=== PATIENT | male | born 1960 | race Caucasian/White ===

== ENCOUNTER → 2021-02-18 12:42 | Outpatient (CLI) | payer MEDICAID, SELFPAY ==
--- NOTE | 2021-02-18 12:46 | RAD_ITS ---
HISTORY: SCIATICA EXAMINATION/TECHNIQUE: XR Spine Lumbar Comp W/ Bending Min 6 Views: 6 view lumbar spine with flexion and extension views COMPARISON: None FINDINGS: VERTEBRAE: 5 [id number] lumbar type vertebra. No fracture or acute compression deformity. Levocurvature of the lumbar spine. Straightening of the normal cervical lordosis with grade 1 degenerative retrolisthesis L4 and L5. Mild scattered vertebral endplate osteophyte formation. Diffuse facet arthropathy, most prominent at L2-L3, L3-L4, and L4-L5 with mild osseous neuroforaminal stenosis.. DISCS: Diffuse disc height loss, most prominent L1-L2. INCLUDED ABDOMEN: Included bowel gas pattern is non-obstructive. RAD/L/S Spine w Bend Min 6 Vw IMPRESSION: Mild to moderate diffuse lumbar spondylosis with levocurvature. Degenerative listhesis at L4-5 with mild spinal canal and neuroforaminal stenosis. MRI could further evaluate stenosis as clinically indicated at 0314 Reported and signed by: Luis Eduardo Mittal MD Electronically Signed: Luis Eduardo Mittal MD at 3:12 EDT Tel , Service support ,
--- NOTE | 2021-02-18 12:46 | RAD_ITS ---
STUDY: X-RAY EXAMINATION: SCOLIOSIS SERIES REASON FOR EXAM: Male, 60 years old. SCIATICA TECHNIQUE: Frontal view(s) of the thoracolumbar spine were obtained in the upright standing position. COMPARISON: None. FINDINGS: There is a 18 degree dextroscoliosis of the thoracic spine with the apex of the convexity at the T7 level. There is a 17 degree levoscoliosis scoliosis of the lumbar spine with the apex of the convexity at the L3 level. RAD/Scoliosis 1 view IMPRESSION: 18 degree dextroscoliosis of the thoracic spine at 17 degrees levoscoliosis of the lumbar spine. Electronically Signed: Barrett Hoffman MD at 15:13 EDT , Service support ,
== END ==
PROVIDERS: PCP Family Medicine; Referring Provider Family Medicine; Visit Provider Family Medicine
DX: M41.9 Scoliosis, unspecified (principal); M54.31 Sciatica, right side
CPT/HCPCS: 72081; 72114

== ENCOUNTER 2021-04-17 08:30 | Outpatient (RCR) | payer OTHER, SELFPAY ==
--- NOTE | 2021-03-06 10:43 | HP.PTEVAL_ITS ---
Patient's Visit Information LESLEY MCCLOUD is a 60 year old M referred to Physical Therapy by Dr. Bernardino Mendieta MD with a diagnosis of Significant lumbar and thoracic scoliosis, DDD. Date of Evaluation: 03/06/21 Physical Therapist: Janna Trujillo DPT - Visit Plan Frequency: 3x /Week Duration: 4 Weeks Plan: Acute back pain- neutral spine- modalities- with progression to increased ROM as tolerated and strengthening to return to ADL's and work related tasks - Subjective Patient reports that he has back issues with severe scoliosis and degeneration. He has had chronic back pain but this bout has been about 3 weeks. 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 Was getting around okay, but a week ago Thursday he rolled over and felt the pain radiate all the way to the achilles on the r ight side. Currently he has pain that radiates to the right calf muscle. Current pain level: 3/10 Worst: 9/10 Crawling in/out of bed, rolling in bed and putting his socks on are the hardest tasks. Agg: weight bearing and twisting. Eases: if sitting getting up and standing and then vis versa- sometimes laying flat on his back. The last two night he has slept on his back and belly. Normally he sleeps on his back. Describes the pain as sharp knife like and hot- but then sometimes he has had almost a cold pain on the lateral thigh. N/T in the right leg comes and goes- has had issues for 10-15 years. Went to see who gave him a medrol dose pack and Tylenol and sent him to PT. He had x-rays but no MRI at this time. The knee does buckle under him- no falls or AD at this time. No change or loss of bowel/bladder. Has not had PT prior. 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 PMHx/Meds: see list - Objective Posture: guarded- FH, RS- can correct but does not maintain- in sitting leans to the left side. Gait: antalgic- decreased stance on the left LE- slightly forward flexed- decreased arm swing and trunk rotation- very hesitant to change directions. HR/TR: able but reports pain HR>TR. SLS: weight shift but unable to SLS on right due to pain- is able to SLS on the left for 10 seconds- reports instability feeling on the right. ROM: Lumbar: Flexion: hands to mid thigh- reports pain with flexion and return to standing, Extn: neutral, SB: equal with pain when SB left. Rotation Left: decreased by 50% with pain- Right: WFL. Sensation: diminished along calf on right. Reflex: patellar-0. Flex: HS: severe, Gastroc: severe. Strength: core: poor, Hip: 4/5 throughout, Knee: 5/5, Ankle: 4+/5 on right. Special Test: Dural signs right: positive, slump right: positive, flexion and prone testing increased symptoms- supine with knees elevated on 2 bolsters gave him slight relief - Balance/Special Test Scores Oswestry Low Back Score: 26 - Goals Goal 1:: Patient will be I with HEP and progression Goal 2:: Patient will report no radiating s/s down his right leg Goal Time Frame: 4-6 Weeks Goal 3:: Patient will return ability to return to work without pain Goal Time Frame: 4-6 Weeks Goal 4:: Patient will maintain proper posture t/o tx session to demo increased core s/s Goal Time Frame: 4-6 Weeks - Rehabilitation Potential Physical Therapy Diagnosis: Patient presents with hypomobility- he has decreased pain free ROM, LE and core strength/stabilization, proprioception, muscular endurance and positive dural signs leading to poor posture, radicular s/s, and decreased ability to perform ADL's/work related tasks. Rehabilitation Potential: Fair - Anticipated Interventions Patient/Client Instruction: Educate patient on: Benefits of Fitness Program Therapeutic Exercise to Include: Strength training, Endurance training, Body mechanics, Postural training, Gait and locomotor training, Dynamic Lumbar Stabilization For the Purpose of:: To improve muscle performance and motor function TENS: Yes Cryotherapy (ice pack, ice massage): Yes Thermo therapy (hot pack): Yes Ultrasound (thermal/non thermal): Yes For the Purpose of:: To decrease pain Thank you for the opportunity to evaluate your patient. For Medicare and Medicare HMO plans, please review the plan of care and approve it. It will need to be FAXED BACK to us at [phone] for Medicare purposes. For Medicare only, by signing this I certify the plan of care. Please let me know if there are questions or concerns regarding this plan of care. Physician Signature: Date:
--- NOTE | 2021-04-17 10:31 | HP.PTDCSUM_ITS ---
It has been my pleasure to treat LESLEY MCCLOUD referred by Dr. Bernardino Mendieta MD, with the diagnosis of Significant lumbar and thoracic scoliosis, DDD for a total of 12 visit(s). Discharge Date: Please see the following information for a summary of their discharge status. Subjective: PATIENT REPORTS HE DID OK AFTER LAST PT SESSION BUT PAIN STARTED TO INCREASE YESTERDAY FOR NO APPARENT REASON AND IT IS BAD THIS MORNING. GETTING OUT OF THE CAR TODAY SHOT PAIN DOWN RIGHT LEG TO THE ANKLE. PATIENT REPORTS HIS NORMAL DAILY ACTIVITY ARE SEVERLY RESTRICTED BY THE PAIN. AT THE MOMENT PATIENT FEELS LIKE HE HAS BACK SLID - AGAIN FOR NO APPARENT REASON. ABOUT A WEEK AGO PATIENT REPORTED 60% IMPROVEMENT BUT NOW 30%. PATIENT REPORTS UP TO 8/10 PAIN THAT STOPS ME IN MY TRACKS WITH CERTAIN MVMTS. RIGHT THIGH Pain Intensity (Out of 10): 5 % Improvement: 30 Objective/Function: PATIENT WAS SEEN TODAY FOR RE-ASSESSMENT OF PROGRESS TOWARD THE SET PT GOALS AND THE NEED FOR FURTHER PHYSICAL THERAPY VS READINESS FOR DISCHARGE. PATIENT WAS IMPROVING SLOWLY INITIALLY SUBJECTIVELY WITH PHYSICAL THERAPY BUT ONLY TO A POINT AND HAS RECENTLY STARTED TO REPORT WORSEN AGAIN FOR NO APPARENT REASON. HE CAN ONLY TOLERATED LIGHT EX AND HIS NORMAL DAILY ACTIVITIES ARE GREATLY LIMITED COMPARED TO BEFORE ONSET OF THIS EPISODE. PATIENT DOES GET TEMPORARY RELIEF FROM SX'S WITH MODALITIES AND HOME TENS UNIT MAY BE BENEFICIAL - THIS WAS DISCUSSED AND PATIENT CONSIDERING. THERE ARE SMALL IMPROVEMENTS IN HIS LUMBAR ROM WITH TESTING TODAY BUT HE NOW HAS SOME DECREASED LIGHT TOUCH SENSATION OF THE RIGHT LATERAL THIGH AND POSTERIOR/MEDIAL LEG. RIGHT HIP FLEXION IS WEAKER THAN LEFT NOW. UPON EXAM TODAY: LUMBAR MVMT LOSS: FLEX - MIN. EXT - MOD TO BRISSA. RIGHT SG - MOD. LEFT SG - MOD. PATIENT C/O INCREASED PAIN IN BACK AND RIGHT BUTTOCK WITH LUMBAR ROM TESTING ALL PLANES - E SPECIALLY LUMBAR EXTENSION. POSITIVE R LE DURAL SIGNS. POOR CORE STRENGTH. LE'S GROSSLY 5/5 WITH MMT'ING EXCEPT RIGHT HIP 4-/5 AND LEFT 4/5. PATIENT TOLERATED STIM AND EX WELL TODAY AND REPORTED FEELING MUCH BETTER UPON DEPARTURE. Goal 1:: Patient will be I with HEP and progression Goal Progress: Not Progressing Goal 2:: Patient will report no radiating s/s down his right leg Goal Progress: Not Progressing Goal 3:: Patient will return ability to return to work without pain Goal Progress: Not Progressing Goal 4:: Patient will maintain proper posture t/o tx session to demo increased core s/s Goal Progress: Not Progressing Plan: D/C DUE TO LACK OF PROGRESS. PHYSICIAN REASSESSMENT RECOMMENDED. If there are questions or concerns regarding this patient's physical therapy, please feel free to call me at [phone]. Thank you for the referral of this patient. Sincerely, Radha Mcgraw, PT, Cert MDT Balance/Gait/Functional tests - Balance/Special Test Scores Oswestry Low Back Score: 29
== END 2021-04-17 19:00 | disposition home or self-care (01) ==
LOC: PT 08:30
PROVIDERS: PCP Family Medicine; Referring Provider Family Medicine; Visit Provider Family Medicine
DX: M41.9 Scoliosis, unspecified (principal); M51.36 Other intervertebral disc degeneration, lumbar region
CPT/HCPCS: 97014; 97035; 97110; 97162; 97164; 97530; G0283

== ENCOUNTER 2021-05-13 06:24 | Outpatient (CLI) | payer OTHER, SELFPAY ==
--- NOTE | 2021-05-13 06:42 | MRI_ITS ---
STUDY: MRI LUMBAR SPINE WITHOUT CONTRAST REASON FOR EXAM: Male, 60 years old. LUMBAGO TECHNIQUE: Standardized fat and water weighted pulse sequences were obtained in the sagittal and axial planes. COMPARISON: X-ray 02/18/2021 FINDINGS: T12-L1: Normal endplates. Normal disc height, hydration and morphology. Normal bilateral facet joints. Normal central canal and bilateral lateral recesses. Normal bilateral intervertebral neural foramina. Normal lumbar lordosis. Mild levoscoliosis centered at L3. Normal conus medullaris that terminates at the T12. L1-2: Mild bilobed disc protrusion asymmetric to left produces mild spinal stenosis and moderate left neural foraminal stenosis. L2-3: Mild bilobed disc protrusion produces mild spinal stenosis and mild bilateral neural foraminal stenosis. L3-4: Moderate bilateral facet hypertrophy and ligament flavum hypertrophy. 2 mm of anterolisthesis of L3 on L4 with a moderate broad disc protrusion produces severe spinal stenosis with severe bilateral lateral recess stenosis with effacement of the L4 nerve roots bilaterally and moderate bilateral neural foraminal stenosis with abutment of the L3 nerve roots bilaterally. L4-5: Mild bilateral facet hypertrophy and moderate ligament flavum hypertrophy. 2 mm retrolisthesis of L4 on L5 with a mild broad disc protrusion produces moderate spinal stenosis with moderate bilateral lateral recess stenosis with abutment of the L5 nerve roots bilaterally and mild bilateral neural foraminal stenosis. L5-S1: Mild bilateral facet hypertrophy. 2 mm retrolisthesis of L5 on S1 with a mild broad disc protrusion produces moderate spinal stenosis with moderate bilateral lateral recess stenosis with abutment of the S1 nerve roots bilaterally and moderate bilateral neural foraminal stenosis with abutment of the L5 nerve roots bilaterally. Normal visualized sacral ala. Normal visualized paraspinous soft tissue structures. MRI/Spine Lumbar (Routine) IMPRESSION: Mild levoscoliosis with degenerative disc disease as described above. Electronically Signed: Ted Gamble MD at 7:51 EST Tel , Service support ,
== END 2021-05-13 23:59 | disposition short-term general hospital (02) ==
LOC: MRI 06:28
PROVIDERS: PCP Family Medicine; Referring Provider Family Medicine; Visit Provider Family Medicine
DX: M54.41 Lumbago with sciatica, right side (principal)
CPT/HCPCS: 72148

== ENCOUNTER 2021-07-23 12:33 | Observation (INO) | payer OTHER, SELFPAY ==
--- NOTE | 2021-07-10 08:54 | EKG12_ITS ---
Test Reason : PREOP Blood Pressure : / mmHG Vent. Rate : 061 BPM Atrial Rate : 061 BPM P-R Int : 176 ms QRS Dur : 102 ms QT Int : 410 ms P-R-T Axes : 069 017 022 degrees QTc Int : 412 ms Normal sinus rhythm Normal ECG Confirmed by MJ ZAMBRANO MD ([id number]), editor newspaper LEONEL ALTAMIRANO ([id number]) on 07/10/2021 1:34:48 PM Referred By: Lopez Mg Confirmed By:MJ ZAMBRANO MD
[2021-07-10 10:18] LABS: Absolute Lymphocyte Count 1.11 X10^3/uL (0.83-4.51); Absolute Neutrophil Count 2.5 X10^3/uL (2.0-7.7); Basophil# 0.03 X10^3/uL; Basophil% 0.7 % (0-1); Eosinophil# 0.13 X10^3/uL; Eosinophils% 3.1 % (0-5); Hemoglobin 15.3 g/dL (13.0-16.5); Lymphocyte # 1.11 X10^3/ul (0.83-4.51); Lymphocyte % 26.7 % (19-41); Mean Corpuscular Hgb 31.2 pg (27.0-32.0); Mean Corpuscular Volume 91.8 fL (80-94); Monocyte# 0.38 X10^3/uL; Monocyte% 9.2 % (0-10); NRBC Flagged by Analyzer 0 % (0-5); Neutrophil # 2.48 X10^3/uL (2.7-7.7); Neutrophil % 59.8 % (47-70); Platelet Count 280 K/mm3 (150-450); RBC Distribution Width CV 11.9 % (11.6-14.6); RBC Distribution Width SD 40.3 fl (35.1-43.9); White Blood Count 4.2 K/mm3 (4.4-11.0)
[2021-07-10 10:52] LABS: Magnesium 2.1 mg/dL (1.6-2.6)
[2021-07-10 10:59] LABS: Anion Gap 7 (5-15); BUN 19 mg/dL (7-18); BUN/Creat Ratio 19.9 RATIO (10-20); Calcium,Total 9.5 mg/dL (8.5-10.1); Chloride 105 mmol/L (98-107); Creatinine, Serum 0.96 mg/dL (0.70-1.30); EST Glomerular Filtration Rate 85 mL/min (>60); Est Glom Filt Rate - Afr Amer 102 mL/min (>60); Glucose 94 mg/dL (74-106); Potassium 4.3 mmol/L (3.5-5.1); Sodium Level 138 mmol/L (136-145)
[2021-07-10 11:26] LABS: HIV - WCH Non-Reactive (Nonreactive); Hepatitis B Surface Antibody Reactive; Hepatitis C Antibody Non-Reactive (Nonreactive)
[2021-07-11 16:27] LABS: Hepatitis A AB, Total Negative (Negative)
--- NOTE | 2021-07-22 08:44 | HP.PCM_ITS ---
History and Physical Date of Admission: 07/23/21 [facility] [id number] [phone] OFFICE VISITDate of Service: 06/10/21 MR#:[id number]:[id number]: LESLEY MCCLOUDRep #:[id number] Provider:Dr. Lopez Mg, Age/Sex: 60/M [facility] Intake Vital Signs 06/10/21 14:20 Height 5 ft 9.5 in Weight: 192 lb 8 oz BMI 28.0 Intake Visit Reasons: Lumbar pain Chief Complaint: right leg pain Allergies No Known Allergies Allergy (Verified 06/10/21 14:26) Medications antiarthritic combination no.2 900 mg tablet mg PO 06/10/21 [History Confirmed 06/10/21] ascorbate calcium (vitamin C) 500 mg tablet 500 mg PO DAILY 06/10/21 [History Confirmed 06/10/21] cholecalciferol (vitamin D3) 50 mcg (2,000 unit) capsule 50 mcg PO DAILY 06/10/21 [History Confirmed 06/10/21] ferrous sulfate 325 mg (65 mg iron) tablet 325 mg PO DAILY 06/10/21 [History Confirmed 06/10/21] PFSH Family History Father Cancer Heart disease Social History Smoking Status: Never smoker alcohol intake: current details: 2-3 drinks per week HPI Low back pain Details: Parts of this documentation were recorded by a scribe, this documentation accurately reflects the service provided and the decisions made by me, Dr. Lopez Mg DO 06/10/21 [id number]. LESLEY MCCLOUD is a 60 year old M NEW Pt here today for right leg pain since 02/2021. Pt denies any injury or surgeries. Pt states pain is posterior under gluteus ana with radicular pain down to toes. Pt states he does have occasional numbness and tingling which sometimes radiates to left thigh. Pt has completed PT helped at first but then seemed to worsen. 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 Pt states he doesn't take NSAID's on a regular basis just PRN when the pain is severe. Lesley is a most pleasant gentleman 60 years old that has chief complaint of low back pain. It also radiates down the right leg and occasionally the left leg. Ambulation seems to make it worse. The pain has become severe over time. He states that he started having some trouble even his long as 10 years ago but the last few months it has been even worse. On examination he has little pain with extension or flexion at this time. He can almost touch his toes. He has good motor strength of all the major muscle groups of both lower extremities. He has no muscle atrophy that I can see. His reflexes are physiologic bilaterally and equal. He has no long tract signs. Clonus is absent Babinski's are downgoing. MRI scan of his lumbar spine is states that he has degeneration throughout his lumbar spine however he has very significant and severe stenosis at L3-4. He has mild stenosis at 4 5 and mild stenosis at 2 3 however these should probably be ignored. We had a long discussion regarding his options. Option #1 of course would be to do nothing. He did not like that idea. Option #2 would be epidural steroid injections even though he realizes that it would only be very temporary and only symptomatic treatment. It does not carry her thing. The last choice of course is to make the canal bigger with surgical intervention. He decided to go that way. We will schedule him for a lumbar laminectomy decompression at L3-4 in the next several weeks. I will see him again at preop. Ortho Exam General General: Yes no acute distress Neurologic: Yes alert and Yes oriented x3 Psychologic: Yes reasonable and appropriate Coding Level of Care Code Off vis,new,level 3 Diagnoses Low back pain M54.42; M54.41; G89.29 Chronicity: chronic Back pain laterality: bilateral Sciatica presence: with sciatica Sciatica laterality: bilateral sciatica Spinal stenosis of lumbar region M48.062 Neurogenic claudication status: with neurogenic claudication Time Spent (min) 40 Assessment and Plan Assessment and Plan
[2021-07-23] VITALS (11 sets, daily range): BP systolic 135–161; BP diastolic 64–98; PULSE 52–93; RESP 16–18; TEMP 36.3–36.8; O2SAT 94–100; BMI 29.0
[2021-07-23] MEDS: Lactated Ringers 1,000 ML 15 ML IV (10:05)
[2021-07-23] MEDS: Acetaminophen 500 MG Tablet 1000 MG PO ×2 (10:49→22:11)
[2021-07-23 11:11] LABS: Bedside Glucose 82 mg/dL (74-106)
--- NOTE | 2021-07-23 12:30 | RAD_ITS ---
STUDY: CROSS-TABLE LATERAL VIEW OF THE LUMBAR SPINE IN THE OPERATING ROOM OF 0126 HOURS ON 07/23/2021 REASON FOR EXAM: Male, 61 years old. LAMINECTOMY DECOMPRESSION L3-4 TECHNIQUE: A single cross-table lateral view of the lumbar spine was performed in the operating room for protocol. COMPARISON: None FINDINGS: There is a posterior surgical probe at the L3/4 level. RAD/Spine 1 View Any Level IMPRESSION: Posterior surgical probe at the L3-4 level. Electronically Signed: Arvind Gibson MD at 18:29 EDT ,
[2021-07-23] MEDS: Cefazolin 2 GM in 0.9% Normal Saline 100 ML IV (12:35)
[2021-07-23] MEDS: THROMBIN (RECOMBINANT) 20,000 UNIT VIAL 20000 UNIT TOPICAL (13:00)
--- NOTE | 2021-07-23 15:15 | PCM.OPRPT ---
Report of Operation Date of Procedure: 07/23/21 Description of Surgical Findings:: Preoperative diagnosis: Severe spinal stenosis L3-4 Postoperative diagnosis: The same Procedure: Decompression laminectomy L3-4 CPT code 40331 Surgeon: Dr. Mg certified surgical first assistant: Jamila Hernández NP Anesthesia: General endotracheal anesthesia administered by [facility] Estimated blood loss: 30 cc Drains: Medium Hemovac Complications: None Procedure: Patient was taken to the OR where he was placed under general endotracheal anesthesia while still on his gurney. A Lange catheter was inserted. Neuro monitoring placed their leads on the patient. He was then placed in the prone position on the Clive frame. After appropriate positioning with care to protect his bony prominences his genitalia the ulnar nerves of both elbows the brachial plexus bilaterally and the facial features and cervical spine the back was prepped and draped in standard fashion. I then made a longitudinal incision centered centered over L3-4. Subcutaneous tissues were incised the length of the skin incision. First I opened the fascia to the left of the spinous process elevated the paravertebral muscles off the lamina of 3 and over the facet. We opened the right side the same exact fashion. This was confirmed with the intraoperative x-ray with a marker in place. I then put single blade super slide retractor in place. We removed the spinous process of L3 with double-action rongeurs. I then released the ligamentum flavum off the underside of the lamina of L3 and laminectomy was carried out with 45 degree Kerrison rongeurs. I then split the ligamentum flavum in the middle and began removing it all the way into the lateral recess first on the right side as I was working from the patient's left. Note that some of the ligamentum flavum was actually adhered to the dura that had a hard time it but I finally was able to get it done. This completely opened up the right side which was his his worst pain down the leg then changed positions and went to the other side of the OR table and the same exact thing on the left removing all the ligamentum flavum all the way out the lateral recess. This completely decompressed the cauda equina I followed the L4 nerve roots their foramina. There was no more pressure on either one of them. Note that every 10 to 50 minutes in the course of the case we thoroughly irrigated with copious amounts of sterile saline. An amniotic membrane was then placed over the dura to prevent adhesions and scar tissue formation. Gelfoam was placed over the top of that. A medium Hemovac drain was then inserted. Closure was begun. We closed the lumbar fascia using [id number] suture with #1 Vicryl. This was followed by reapproximation of the subcutaneous tissues with 2-0 Vicryl in interrupted fashion and finally the skin was approximated using skin clips. Sterile dressings were then applied. He was only covered in the OR moved to his hospital bed and taken to recovery in satisfactory condition. There is the end of operative summary on Colin Hansen. This is Dr. Mg dictating.
--- NOTE | 2021-07-23 17:37 | PN.HOSP_ITS ---
Documented by User: Anuradha Green GRIEF COUNSELLOR-C 07/23/21 17:47 Subjective Subjective Patient seen and examined following decompression laminectomy of the L3-L4. Hospitalist have been consulted for medical management. Patient is laying in bed alert and oriented, denies pain. Patient states that he was given morphine a little bit ago which was effective. at bedside. Lange is draining and surgical drain intact. Objective Data Objective Data Vital Signs: Vital Signs Temp Pulse Resp BP Pulse Ox 97.7 F L 62 16 138/64 H 97 07/23/21 16:52 07/23/21 16:52 07/23/21 16:52 07/23/21 16:52 07/23/21 16:52 Oxygen Flow Rate (L/min) 2 Oxygen Delivery Method Nasal Cannula Weight: 196 lb 3.382 oz Body Mass Index (BMI) 29.0 Intake & Output: Intake and Output for Last 24 Hours 07/21/21 07/22/21 07/23/21 23:59 23:59 23:59 Intake Total 213.5 / 213.5 Output Total 700 / 700 Balance -486.5 / -486.5 Lab / Micro Data Result Diagrams: 07/10/21 09:20 07/10/21 09:20 Labs: Laboratory Results - last 24 hr 07/23/21 11:00: POC Glucose 82 Micro: Microbiology 07/10/21 09:20 Swab (Method) Nasal Screen MRSA/MSSA - Final Physical Exam Const alert, oriented x3 and no apparent distress HEENT head/scalp atraumatic Head and Scalp: normocephalic Eyes conjunctivae normal and no scleral icterus Neck no lymphadenopathy and supple Resp normal respiratory effort, no retractions, no use of accessory muscles and clear to auscultation bilaterally Cardio regular rate, regular rhythm, S1 normal heart sound, S2 normal heart sound and peripheral pulses 2+ throughout GI normal to inspection, nondistended, normoactive bowel sounds, soft to palpation and non-tender Extremity normal to inspection, full ROM and no clubbing, cyanosis or edema Peripheral Pulses: Yes pulses 2+ throughout Skin no rashes or lesions noted Neuro moves all extremities, no focal motor deficits and no sensory deficits noted Sensorium / Orientation: awake and alert Speech: speech normal Psych affect normal Assessment & Plan Assessment/Plan (1) Spinal stenosis of lumbar region: QUALIFIERS: Neurogenic claudication status: with neurogenic claudication Qualified Code(s): M48.062 - Spinal stenosis, lumbar region with neurogenic claudication PLAN: 1. Spinal stenosis of lumbar region status post decompression laminectomy of the S3 and S4 -Pain management per Dr. Mg -CBC and BMP ordered for a.m. -PT following -Encourage incentive spirometry -Will hold patient's daily supplements at this time DVT prophylaxis-SCDs This patient was seen by Anuradha Green NP-C under the supervision of Dr. Cobb. 13 minutes spent in clinical coordination of patient's plan of care. Documented by User: Dr. Matheus Cobb MD 07/23/21 18:32 Subjective Subjective Referred by attending Dr. Saurav Marroquin. Reason for consultation/chief complaint: Medical management of hypertension and perioperative lumbar spinal surgery. HPI: Patient has chronic lumbar spine pain, sciatica in nature for last 15 years. Recently since February 2021 he complained of right leg pain mainly in the gluteal region with radiation to toes along with occasional numbness and tingling sensation. Sometimes here with radiating pain to left thigh. Patient was taking as needed NSAIDs for pain relief. Denies any lumbar spine injection. His pain gets worse with ambulation. The patient had decompression laminectomy L3-L4 for severe spinal stenosis at L3-L4. I was consulted for perioperative management. Patient has mild lumbar back pain 3-4/10 intensity localized. Currently, denies numbness tingling sensation in the toes. Review of system Constitutional: No fever. Mild back pain HEENT: Reports systems reviewed and no addt'l complaints, except as documented Respiratory/Chest: Denies chest pain, shortness of breath at rest or with exertion Gastrointestinal: Denies coffee ground emesis, hematemesis or vomiting Genitourinary: Denies burning urination. occasional hesitancy to start urine/intermittent micturition Musculoskeletal/spine: Right buttock pain duration to toes. Neurologic: Denies seizure-like activity skin: No ulcer. No rash Endocrinology: Reports systems reviewed and no addt'l complaints, except as documented Hematologic/Lymphatic: Reports systems reviewed and no addt'l complaints, except as documented Rest 14 ROS are negative except as mentioned in HPI Past medical history: Hypertension, lumbar spinal stenosis, chronic maxillary sinusitis Social history: Never smoker. 2-3 drinks per week. Family history: Positive for heart disease in father Objective Data Lab / Micro Data Result Diagrams: 07/10/21 09:20 07/10/21 09:20 Physical Exam Narrative General: Alert, Oriented x3, Cooperative HEENT: Atraumatic, PERRLA, EOMI, Normocephalic Oral: No Gingival or Mucosal Lesions/ Ulcerations Neck: Supple, No JVD, Negative Carotid Bruits Lungs: Air entry diminished in bilateral lung bases. No crepitation/rhonchi Cardiovascular: Regular rate, Regular Rhythm, Normal S1, Normal S2, holosystolic murmur over cardiac apex Abdomen: Bowel Sounds Present, Soft, Non Tender, Non-Distended : No renal angle tenderness. No suprapubic tenderness. Extremities: No edema, Capillary Refill Less than 3 Seconds Skin: No rashes, No breakdown Musculoskeletal/spine: Surgical dressing is dry at lumbar back. Lumbar surgical drain is empty but tube has blood. No Tenderness to Palpation of Joints of extremities. Neurological: Cranial nerves II-XII grossly intact, DTR 2+/4 and Symmetrical Psych/Mental Status: Normal Affect, Appropriate Assessment & Plan Assessment/Plan (1) Spinal stenosis of lumbar region: QUALIFIERS: Neurogenic claudication status: with neurogenic claudication Qualified Code(s): M48.062 - Spinal stenosis, lumbar region with neurogenic claudication PLAN: This patient was seen in conjunction with KELLEN Ling. I have independently interviewed and examined the patient and reviewed pertinent history, examination findings, laboratory and plan of management. I have reviewed the note and agree with the documented findings with the few additional points. In brief, patient is 61-year-old gentleman who is admitted for perioperative care after elective decompressive laminectomy of L3-L4 for severe lumbar spinal stenosis. Patient has mild pain. Pain control. PT and OT ordered. Incentive spirometry. VT prophylaxis as per surgeon discretion. Bilateral SCDs Patient also said that he has chronic murmur which seems MVP, as per his description. No chest pain, shortness of breath, dyspnea on exertion recently. No dizziness or syncope. Patient does not have previous echo in our system and is not indicated now. Hypertension: Blood pressure is not at goal. BP 138/64, not taking any antihypertensive medication. Blood pressure is 150/98 during surgery. Monitor BP. Hydralazine 10 mg every 6 hours as needed as needed for blood pressure more than 180 mmHg. Patient was on multivitamin, vitamin D, ascorbic acid and ferrous sulfate. Currently on hold because of nonformulary. I have discussed my assessment with KELLEN Ling and orders have been reviewed. Charges/Coding Visit Charges Office Visits / Consults: 27014 OP Consult L3
[2021-07-23] MEDS: Ensure Surgery 237 ML LIQUID PO (17:57)
[2021-07-23] MEDS: Cefazolin 1 GM/50 ML BAG IV (20:09)
[2021-07-23] MEDS: Ondansetron 4 MG/2 ML Vial IV (22:50)
[2021-07-24] MEDS: Morphine 2 MG/ML Syringe IV (00:45)
[2021-07-24] MEDS: 0.9% Saline Lock 10 ML Syringe IV (00:46)
[2021-07-24 01:00] VITALS: BP 114/62; PULSE 72; RESP 16; TEMP 36.6; O2SAT 95
[2021-07-24] MEDS: Acetaminophen 500 MG Tablet 1000 MG PO ×2 (05:00→13:04)
[2021-07-24] MEDS: Cefazolin 1 GM/50 ML BAG IV (05:00)
[2021-07-24 05:06] VITALS: BP 126/71; PULSE 76; RESP 18; TEMP 36.7; O2SAT 96
--- NOTE | 2021-07-24 06:28 | PCM.PN.HOSP ---
Subjective Subjective Patient with no acute events overnight per self and per nursing report. He does state he had nausea with narcotic regimen but this is improved this a.m. He is seated upright in the bedside chair. He does state that his back is significantly sore and he feels as though his been hit by a bat in that region. He notes sensation and movement is intact to the lower extremities. Patient denies fevers, chills, nausea, emesis, abdominal pain, chest pain or dyspnea. Objective Data Objective Data Vital Signs: Vital Signs Temp Pulse Resp BP Pulse Ox 98.1 F 76 18 126/71 H 96 07/24/21 05:06 07/24/21 05:06 07/24/21 05:06 07/24/21 05:06 07/24/21 05:06 Oxygen Flow Rate (L/min) 2 Oxygen Delivery Method Room Air Weight: 196 lb 3.382 oz Body Mass Index (BMI) 29.0 Intake & Output: Intake and Output for Last 24 Hours 07/22/21 07/23/21 07/24/21 23:59 23:59 23:59 Intake Total 683.5 / 1683.5 1709.25 / 1709.25 Output Total 950 / 1600 1650 / 1650 Balance -266.5 / 83.5 59.25 / 59.25 Lab / Micro Data Result Diagrams: 07/24/21 05:45 07/24/21 05:45 Labs: Laboratory Results - last 24 hr 07/23/21 11:00: POC Glucose 82 Micro: Microbiology 07/10/21 09:20 Swab (Method) Nasal Screen MRSA/MSSA - Final Radiography Diagnostic Testing: Radiology Impression Spine X-Ray 07/23/21 12:30 IMPRESSION: Posterior surgical probe at the L3-4 level. Electronically Signed: Arvind Gibson MD at 18:29 EDT , Physical Exam Narrative Physical Examination: General: Awake, alert, oriented x 3 and cooperative, seated upright in medical surgical bedside chair, no acute distress, notes pain is present but lessened with narcotic therapy. He notes prior nausea following narcotic therapy is subsided. Skin: Normal color, normal turgor, no icterus, no cyanosis, posterior lumbar dressing in place with no drainage. HEENT: AT/NC, EOMI, PERRLA, mildly dry MM. Lungs: CTA bilaterally, moderate effort, mild decrease BL bases, no rales, ronchi or wheezing. Heart: Regular rate and rhythm; no gallop, rub audible. Abdomen: Soft, NTTP, ND, normal BS, no HSM. Extremities: No cyanosis, clubbing, or edema, extremity sensation intact, peripheral pulses intact. Neurological: Patient awake, alert, oriented x 3, cognitive function intact; pupils equally reactive to light and accommodation, cranial nerves II-XII grossly normal, moving all 4 extremities, no focal deficits, strength improving, moderately global decrease given recent OR peer Psychiatric: Affect appears mildly fatigued otherwise normal, no acute evidence of depressive or anxiety feelings. Assessment & Plan Assessment/Plan (1) Spinal stenosis of lumbar region: QUALIFIERS: Neurogenic claudication status: with neurogenic claudication Qualified Code(s): M48.062 - Spinal stenosis, lumbar region with neurogenic claudication PLAN: The patient is a 61 y/o M w/ PMHx: Overweight, Chronic anemia/Fe deficiency anemia, Hx sinus arrhythmia, Chronic back pain w/ RLE radiculopathy who presents to the [facility] on 07/23/21 for planned decompression laminectomy L3-L4 per Dr. Mg. #1. Chronic back pain with right lower extremity radiculopathy: Failed conservative therapies and treatments, admitted per Dr. Mg for 07/23/21 decompression laminectomy L3-4, post-operative pain management, bowel regimen, DVT Prophylaxis, PT/OT/CM per surgery discretion. Recommended to nursing staff that if he had recurrent nausea following narcotic therapy that he take this with food and potentially consider a pretreatment with an antiemetic regimen. #2. Chronic anemia/iron deficiency anemia: Most recent hemoglobin noted 07/10/21 15.3, postoperative hemoglobin pending, continue iron supplementation. #3. History of sinus arrhythmia: Noted in history, was remotely, cleared by cardiology. #4. Overweight: Weight loss and lifestyle changes encouraged. #5. DVT prophylaxis: SCDs, chemoprophylaxis per surgery discretion given recent lumbar surgery. Charges/Coding Visit Charges Inpatient E&M: 91267 Subs Hosp L2
[2021-07-24 06:48] LABS: Absolute Lymphocyte Count 0.71 X10^3/uL (0.83-4.51); Absolute Neutrophil Count 8.6 X10^3/uL (2.0-7.7); Basophil# 0.01 X10^3/uL; Basophil% 0.1 % (0-1); Hematocrit 41.2 % (40-54); Hemoglobin 14.1 g/dL (13.0-16.5); Lymphocyte # 0.71 X10^3/ul (0.83-4.51); Lymphocyte % 7.1 % (19-41); Mean Corp Hgb Conc 34.2 g/dL (32-36); Mean Corpuscular Hgb 31.2 pg (27.0-32.0); Mean Corpuscular Volume 91.2 fL (80-94); Mean Platelet Vol. 9.2 fl (6.2-12.0); Monocyte# 0.68 X10^3/uL; Monocyte% 6.8 % (0-10); NRBC Flagged by Analyzer 0 % (0-5); Neutrophil % 85.6 % (47-70); Platelet Count 250 K/mm3 (150-450); RBC Distribution Width CV 11.7 % (11.6-14.6); RBC Distribution Width SD 39.1 fl (35.1-43.9); Red Blood Count 4.52 M/mm3 (4.6-6.2)
[2021-07-24 07:09] LABS: Anion Gap 4 (5-15); BUN 15 mg/dL (7-18); BUN/Creat Ratio 15.2 RATIO (10-20); Chloride 104 mmol/L (98-107); Creatinine, Serum 0.99 mg/dL (0.70-1.30); EST Glomerular Filtration Rate 82 mL/min (>60); Est Glom Filt Rate - Afr Amer 99 mL/min (>60); Estimated Creatinine Clearance 77.37 ml/min; Glucose 135 mg/dL (74-106); Potassium 4.5 mmol/L (3.5-5.1); Sodium Level 135 mmol/L (136-145)
[2021-07-24 07:28] VITALS: O2SAT 93
[2021-07-24] MEDS: Ondansetron 4 MG/2 ML Vial IV (07:58)
[2021-07-24] MEDS: diazePAM 5 MG Tablet PO (07:58)
[2021-07-24 08:28] VITALS: BP 134/82; PULSE 77; RESP 16; TEMP 36.7
[2021-07-24 08:29] VITALS: O2SAT 97
--- NOTE | 2021-07-24 11:10 | CASEMGMT ---
RN MARICRUZ BOILING HOUSE HAND CM to room to meet with patient for initial transition planning/care coordination assessment. RN MARICRUZ introduced self and role at [facility]. Pt voices understanding and consents to assessment at this time. Pt sitting up in chair in no distress at this time. @ bedside. Pt is A/O at this time and answers all questions appropriately. Care providers, pharmacy, and demographics verified/updated at this time. PCP: Dr Mendieta Specialists: Dr Mg-angelo Preferred Pharmacy: [facility] Retail Insurance: [id number] Prescription Benefit: Yes Living Will/HPOA: Has both LW and HPOA, who is his , Mera LNOK: , Mera Living Arrangements: Lives w/ in one-story home w/1-2 steps to enter. Independent w/ADL's. does most home mgmt tasks. Transportation: Pt states drives self and states no transportation concerns at this time. also drives. DME: Denies using any DME and denies needs. HHC/SNF: No hx of either. No needs identified. Pt wishes to return home and states has no concerns with going home at time of discharge. CM to follow for any discharge planning/needs. Pt voices no concerns/needs at this time. Advised pt to ask for CM if any questions/concerns/needs arise. Voices understanding. PLAN: Home w/spousal support and discharge plans in place. Bethanie DE LA CRUZ RN, CM
--- NOTE | 2021-07-24 13:35 | PCM.DC ---
Discharge Instructions Follow Up Care Test Results: Test results from this visit will be discussed in further detail at your follow-up appointment, if applicable. Discharge Plan Admission Admit Date/Time: 07/23/21 12:33 Attending Provider: Deyanira Rogers Primary Care Provider: Bernardino Mendieta Consulting Providers: Matheus Cobb Discharge Orders/Prescriptions Prescriptions: No Action ferrous sulfate 325 mg (65 mg iron) tablet 325 mg PO MOWEFR RF: 0 ascorbate calcium (vitamin C) 500 mg tablet 500 mg PO DAILY RF: 0 cholecalciferol (vitamin D3) 50 mcg (2,000 unit) capsule 50 mcg PO DAILY RF: 0 multivitamin Tablet 1 tab PO DAILY RF: 0 echinacea 450 mg Capsule 760 mg PO DAILY RF: 0 Glucosamine Chondroitin PLUS 130-345-78-54 mg Capsule 2 cap PO DAILY RF: 0 Referrals / Follow Up: Bernardino Mendieta MD [Primary Care Provider] - Disposition Disposition (needs filled in before D/C Order can be placed): Home, Self Care
--- NOTE | 2021-07-24 13:36 | DS.PCM_ITS ---
Providers Date of Admission: 07/23/21 Primary Care Physician: Dr. Bernardino Mendieta MD Consultations 07/23/21 16:48 Consult: Hospitalist Routine Consulting Provider: Matheus Cobb Reason for Consult: Medical Management EMERGENT Consult: No MD Notified: Yes Date Notified: 07/23/21 Time Notified: 17:00 Method of Notification: Text Reason For Visit: LUMBAR LAMINECTOMY DECOMPRESSION L3-4 Diagnosis Discharge Diagnosis (1) Spinal stenosis of lumbar region: Status: Acute Code(s): M48.061 - Spinal stenosis, lumbar region without neurogenic claudication Qualifiers: Neurogenic claudication status: with neurogenic claudication Qualified Code(s): M48.062 - Spinal stenosis, lumbar region with neurogenic claudication Plan: This patient was admitted yesterday July 23. He underwent laminectomy decompression at the L3-4 level. Today he is doing extremely well. His leg pain is completely resolved. He has been walking the halls. I removed his dres sing and removed his drain. Incision is healing well. Was given post laminectomy protocol regarding his activities. Will be given oxycodone 7.5 mg for pain. He knows that on Thursday the dressing can come off and on Thursday he can start showering. The wound is to be left uncovered. He already has an appointment to see me in the office. This is the end of discharge summary on Colin Hansen. This is Dr. Mg dictating. Medications at Discharge Home Medications ascorbate calcium (vitamin C) 500 mg tablet 500 mg PO DAILY 06/10/21 cholecalciferol (vitamin D3) 50 mcg (2,000 unit) capsule 50 mcg PO DAILY 06/10/21 ferrous sulfate 325 mg (65 mg iron) tablet 325 mg PO MOWEFR 06/10/21 echinacea 760 mg PO DAILY 07/09/21 [id number] [Glucosamine Chondroitin PLUS] 2 cap PO DAILY 07/09/21 multivitamin 1 tab PO DAILY 07/09/21 Weight / BMI Weight Weight: 196 lb 3.382 oz Body Mass Index (BMI) 29.0 ABG / Lab / Microbiology Data Result Diagrams: 07/24/21 05:45 07/24/21 05:45 Laboratory: Laboratory Results - last 24 hr 07/24/21 05:45: WBC 10.0, RBC 4.52 L, Hgb 14.1, Hct 41.2, MCV 91.2, MCH 31.2, MCHC 34.2, RDW Std Deviation 39.1, RDW Coeff of Cecile 11.7, Plt Count 250, MPV 9.2, Immature Gran % (Auto) 0.400, Neut % (Auto) 85.6 H, Lymph % (Auto) 7.1 L, [place] % (Auto) 6.8, Eos % (Auto) 0.0, Baso % (Auto) 0.1, Absolute Neuts (auto) 8.6 H, Absolute Lymphs (auto) 0.71 L, Nucleated RBC % 0 07/24/21 05:45: Sodium 135 L, Potassium 4.5, Chloride 104, Carbon Dioxide 27.0, Anion Gap 4 L, BUN 15, Creatinine 0.99, Estim Creat Clear Calc 77.37, Est GFR (MDRD) Af Amer 99, Est GFR (MDRD) Non-Af 82, BUN/Creatinine Ratio 15.2, Glucose 135 H, Calcium 9.0 Microbiology: Microbiology 07/10/21 09:20 Swab (Method) Nasal Screen MRSA/MSSA - Final Radiography Diagnostic Testing: Radiology Impression Spine X-Ray 07/23/21 12:30 IMPRESSION: Posterior surgical probe at the L3-4 level. Electronically Signed: Arvind Gibson MD at 18:29 EDT , Meaningful Use Info Meaningful Use Diagnoses (Choose all that apply): None applicable Discharge Plan Admission Admit Date/Time: 07/23/21 12:33 Attending Provider: Deyanira Rogers Primary Care Provider: Bernardino Mendieta Consulting Providers: Matheus Cobb Discharge Orders/Prescriptions Prescriptions: No Action ferrous sulfate 325 mg (65 mg iron) tablet 325 mg PO MOWEFR RF: 0 ascorbate calcium (vitamin C) 500 mg tablet 500 mg PO DAILY RF: 0 cholecalciferol (vitamin D3) 50 mcg (2,000 unit) capsule 50 mcg PO DAILY RF: 0 multivitamin Tablet 1 tab PO DAILY RF: 0 echinacea 450 mg Capsule 760 mg PO DAILY RF: 0 Glucosamine Chondroitin PLUS 097-915-76-54 mg Capsule 2 cap PO DAILY RF: 0 Referrals / Follow Up: Bernardino Mendieta MD [Primary Care Provider] - Disposition Disposition (needs filled in before D/C Order can be placed): Home, Self Care
[2021-07-24 13:53] VITALS: BP 123/85; PULSE 86; RESP 16; TEMP 37.4; O2SAT 98
== END 2021-07-24 14:27 | disposition home or self-care (01) ==
LOC: SDC 15:16 → MS3 15:16
PROVIDERS: Anesthesiology; Nurse Practitioner Family; Admitting Provider Orthopaedic Surgery; PCP Family Medicine; Referring Provider Orthopaedic Surgery; Visit Provider Family Medicine
PROC: (CPT 63030; principal; 2021-07-23 12:00)
DX: M48.062 Spinal stenosis, lumbar region with neurogenic claudication (principal); R11.0 Nausea; M54.30 Sciatica, unspecified side; I10 Essential (primary) hypertension; D50.9 Iron deficiency anemia, unspecified; Z79.899 Other long term (current) drug therapy
CPT/HCPCS: 63047; 00630; 36415; 72020; 80048; 82962; 83735; 85025; 86703; 86706; 86708; 86803; 87081; 93005; 96365; 96366; 96375; 96376; 97161; 99218; 99251; A4216; G0378; G0463; J2405; J3475

== ENCOUNTER → 2022-12-30 | Outpatient (CLI) | payer OTHER, SELFPAY ==
--- NOTE | 2022-12-30 16:03 | RAD_ITS ---
INDICATION: PAIN IN ANKLE EXAMINATION/TECHNIQUE: X-RAY - RIGHT XR Ankle Min 3 Views COMPARISON: None. FINDINGS: SOFT TISSUES: Mild medial ankle soft tissue swelling. BONES/JOINTS: No fracture or dislocation. No significant degenerative changes. No erosive changes. Small plantar calcaneal enthesophyte. RAD/Ankle min 3 Views IMPRESSION: Mild medial ankle soft tissue swelling with no acute osseous abnormality. Electronically Signed: Devon Jacome DO at 18:17 EDT ,
--- NOTE | 2022-12-30 16:05 | RAD_ITS ---
STUDY: X-RAY - RIGHT TIBIA AND FIBULA REASON FOR EXAM: Male, 62 years old. PAIN IN LEG TECHNIQUE: 2 view(s) of the tibia and fibula were obtained. COMPARISON: None. FINDINGS: Normal visualized tibia. Normal visualized fibula. There is no demonstrated acute fracture. The soft tissue structures are unremarkable. RAD/Tibia & Fibula 2 Views IMPRESSION: Normal x-ray examination of the tibia and fibula. Electronically Signed: Beau Bella MD at 18:48 EDT ,
== END | disposition home or self-care (01) ==
LOC: MTRAD 16:02
PROVIDERS: PCP Family Medicine; Referring Provider Family Medicine; Visit Provider Family Medicine
DX: M79.604 Pain in right leg (principal); M25.571 Pain in right ankle and joints of right foot
CPT/HCPCS: 73590; 73610

== ENCOUNTER → 2024-08-08 | Outpatient (CLI) | payer MEDICARE, SELFPAY ==
--- NOTE | 2024-08-08 14:24 | RAD_ITS ---
PROCEDURE: FINGER(S) MIN 2 VIEWS 08/08/2024 REASON FOR EXAM: PAIN TECHNIQUE: 3 view(s) of the thumb of the left hand COMPARISON: None. FINDINGS: Bones: Mineralization is normal. No fracture. Unremarkable Joints: The articular surfaces are maintained. Soft tissues: Unremarkable. Other: RAD/Finger(s) Min 2 Views IMPRESSION: No acute process. Reading Location: [facility]
== END | disposition home or self-care (01) ==
PROVIDERS: PCP Family Medicine; Referring Provider Physician Assistant; Visit Provider Physician Assistant
DX: M79.646 Pain in unspecified finger(s) (principal)
CPT/HCPCS: 73140

== ENCOUNTER → 2024-11-11 | Outpatient (CLI) | payer MEDICARE, SELFPAY ==
--- NOTE | 2024-11-11 11:12 | RAD_ITS ---
PROCEDURE: SHOULDER MIN 2 VIEWS 11/11/2024 REASON FOR EXAM: SHOULDER PAIN TECHNIQUE: SHOULDER MIN 2 VIEWS COMPARISON: None FINDINGS: Bones: Unremarkable Joints: Normal alignment of the acromioclavicular and glenohumeral joints. Soft tissues: Soft tissues are unremarkable. Other: RAD/Shoulder min 2 Views IMPRESSION: NO ACUTE FRACTURE OR DISLOCATION. Reading Location: [facility]
== END | disposition home or self-care (01) ==
LOC: MTRAD 11:08
PROVIDERS: PCP Family Medicine
DX: M25.511 Pain in right shoulder (principal)
CPT/HCPCS: 73030

== ENCOUNTER → 2024-11-24 | Outpatient (CLI) | payer MEDICARE, SELFPAY ==
[2024-11-24 13:09] LABS: PSA,Total - Annual Screen 0.47 ng/mL (0.02-4.00)
== END | disposition home or self-care (01) ==
PROVIDERS: PCP Family Medicine
DX: Z00.00 Encounter for general adult medical examination without abnormal findings (principal); Z12.5 Encounter for screening for malignant neoplasm of prostate
CPT/HCPCS: 36415; 84153; G0103

== ENCOUNTER 2024-12-16 05:26 | Day surgery (SDC) | payer MEDICARE, SELFPAY ==
[2024-12-16] VITALS (8 sets, daily range): BP systolic 103–147; BP diastolic 72–94; PULSE 59–88; RESP 14–16; TEMP 36.6–36.7; O2SAT 97–100; BMI 27.8
--- OUTSIDE RECORDS SUMMARY | 2024-12-16 05:28 | XMS RPT_ITS | CCD ---
Author Organization [facility] Care Team Providers Care Rn Orthopaedics Name Role Phone Unavailable Primary Care Provider Unavailabl e Gayatri MAN, Dr. Villegas Primary Care Provider Dr. Bakari Mendieta MD Referring Provider Jay Garcia Attending Provider Syed Marie Attending Provider Syed Marie Referring Provider [phone] Gayatri MAN, Dr. Villegas Primary Care Provider Dr. Bakari Mendieta MD Referring Provider Constantine ACCOUNTS RECEIVABLE COLLECTOR-CPam Attending Provider Lino ACCOUNTS RECEIVABLE COLLECTOR-C, Cathi Attending Provider Lino ACCOUNTS RECEIVABLE COLLECTOR-C, Cathi Referring Provider Gayatri, Christopher Primary Care Unavailable Ranney, Christmatteoer Attending Unavailable Ranney, Christopher Referring Unavailable Pam Fitch Attending Unavailable Ranney, Christopher Primary Care Unavailable Ranney, Christopher Referring Unavailable Syed Marie Attending Unavailable Ranney, Christopher Primary Care Unavailable Ranney, Christopher Referring Unavailable Ranney, Christopher Primary Care Unavailable Jay Garcia Attending Unavailable Ranney, Christopher Referring Unavailable Ranney, Christopher Primary Care Unavailable Jay Garcia Attending Unavailable Ranney, Christopher Referring Unavailable Ranney, Christopher Primary Care Unavailable Jay Garcia Attending Unavailable Ranney, Christopher Referring Unavailable Ranney, Christopher Primary Care Unavailable Lino ACCOUNTS RECEIVABLE COLLECTOR, Cathi Attending Unavailable Kashmirel ACCOUNTS RECEIVABLE COLLECTOR, Cathi Referring Unavailable Ranney, Christopher Primary Care Unavailable Ranney, Christopher Referring Unavailable Cathi Huynh NP Attending Unavailable Syed Marie Attending Unavailable Syed Marie Referring Unavailable Bakari Mendieta Primary Care Unavailable Bakari Mendieta Primary Care Unavailable Friend, Johnson Attending Unavailable Bakari Mendieta Referring Unavailable Medications Current Medications Medication Drug Class(es) Dates Sig (Normalized) Sig (Original) calcium ascorbate 500 mg oral tablet (5 sources) Start: 06-10-2021 take 1 tablet by mouth once daily Ascorbate Calcium (Vitamin C) 500 mg tablet Active 500 mg PO DAILY June 10, 2021 1:00am cephalexin 500 mg oral capsule (9 sources) Cephalosporin Antibacterial Start: 08-08-2024 take 1 capsule by mouth three times daily Cephalexin 500 mg capsule Active 500 mg PO THREE TIMES A DAY 21 0 August 08, 2024 12:00am Start: 01-23-2019 End: 02-02-2019 take 1 capsule by mouth every six hours Cephalexin (Keflex) 500 mg capsule Discontinued 500 mg PO EVERY 6 HOURS 40 10 0 January 23, 2019 12:00am February 01, 2019 12:00am February 02, 2019 12:07am Cellulitis of left finger cholecalciferol 0.05 mg oral capsule (5 sources) Vitamin D Start: 06-10-2021 take 1 capsule by mouth once daily Cholecalciferol (Vitamin D3) 50 mcg (2,000 unit) capsule Active 50 ug PO DAILY June 10, 2021 1:00am Echinacea (1 source) Start: 07-09-2021 take 760 mg by mouth once daily Echinacea Active 760 MG PO DAILY July 09, 2021 1:00am Echinacea 450 mg Capsule (4 sources) Start: 07-09-2021 take 1 capsule by mouth once daily Echinacea 450 mg Capsule Active 760 mg PO DAILY July 09, 2021 1:00am ferrous sulfate 325 mg oral tablet (5 sources) Start: 06-10-2021 Ferrous Sulfat e 325 mg (65 mg iron) tablet Active 325 mg PO MOWEFR June 10, 2021 1:00am Seys-Mejbt-En3-Dha-Epa -Fish-St (Glucosamine Chondroitin Plus) 146-076-96-54 mg Capsule (5 sources) Start: 07-09-2021 Dtvh-Iidiw-Pd4 -Dha-Epa -Fish-St (Glucosamine Chondroitin Plus) 050-867-35-54 mg Capsule Active 2 NMA PO DAILY July 09, 2021 1:00am Start: 07-09-2021 take 2 capsules by mouth once daily Giyw-Rpxqo-Gf9-Dpz-Rnw-Ohop-St (Glucosam ine Chondroitin Plus) 035-792-20-54 mg Capsule Active 2 CAP PO DAILY July 09, 2021 1:00am Multivitamin preparation (1 source) Start: 07-09-2021 take 1 tablet by mouth once daily Multivitamin Active 1 TABLET PO DAILY July 09, 2021 1:00am Multivitamin Tablet (4 sources) Start: 07-09-2021 Multivitamin T ablet Active 1 {tbl} PO DAILY July 09, 2021 1:00am predniSONE 10 mg oral tablet (1 source) Start: 02-06-2021 End: 02-18-2021 predniSONE (DELTASONE) 10 mg tablet Indications: Sciatica, right side Take 6 tabs for 3 days, then 4 tabs for 3 days, then 2 tabs for 3 days then 1 tab for 3 days with food. 39 tablet 0 02/06/2021 02/18/2021 Active Comment on above: Take 6 tabs for 3 da ys, then 4 tabs for 3 days, then 2 tabs for 3 days then 1 tab for 3 days with food. Completed/Discontinued Medications Medication Drug Class(es) Dates Sig (Normalized) Sig (Original) amoxicillin 500 mg oral capsule (5 sources) Penicillin-class Antibacterial Start: 09-01-2018 End: 09-11-2018 take 2 capsules by mouth twice daily Amoxicillin 500 mg capsule Discontinued 1000 mg PO TWICE A DAY 40 10 0 September 01, 2018 12:00am September 10, 2018 12:00am September 11, 2018 12:07am Start: 09-01-2018 End: 09-11-2018 take 1000 mg by mouth twice daily Amoxicillin Discontinued 1000 MG PO TWICE A DAY 40 September 01, 2018 12:00am September 11, 2018 12:07am amoxicillin 875 mg / clavulanate 125 mg oral tablet (4 sources) Penicillin-class Antibacterial Start: 06-10-2024 End: 06-20-2024 Amoxicillin-Pot Clavulanate 875-125 mg tablet Discontinued 1 {tbl} PO Q12H 20 10 0 June 10, 2024 1:00am June 19, 2024 1:00am June 20, 2024 1:14am Acute sinusitis, unspecified cyclobenzaprine hydrochloride 10 mg oral tablet (1 source) Muscle Relaxant Start: 02-06-2021 take 1 tablet by mouth three times daily cyclobenzaprine (FLEXERIL) 10 mg tablet Indications: Sciatica, right side Take 1 tablet by mouth three times daily. 12 tablet 0 02/06/2021 Active Comment on above: Take 1 tablet by tejas three times daily. diphenhydrAMINE hydrochloride 25 mg oral capsule (5 sources) Histamine-1 Receptor Antagonist Start: 09-01-2018 End: 06-10-2021 take 1 capsule by mouth at bedtime as needed Diphenhydramine Hcl 25 mg capsule Discontinued 25 mg PO AT BEDTIME as needed September 01, 2018 12:00am June 10, 2021 3:28pm sulfamethoxazole 800 mg / trimethoprim 160 mg oral tablet (5 sources) Dihydrofolate Reductase Inhibitor Antibacterial, Sulfonamide Antimicrobial Start: 01-23-2019 End: 02-02-2019 Sulfamethoxazole-Tr imethoprim (Bactrim Ds) 800-160 mg tablet Discontinued 1 {tbl} PO TWICE A DAY 20 10 0 January 23, 2019 12:00am February 01, 2019 12:00am February 02, 2019 12:07am Cellulitis of left finger Problems Active Problems Problem Classification Problem Date Documented Date Episodic/Chronic Administrative/social admission (4 sources) Administrative reason for encounter; Translations: [Encounter for other administrative examinations] 01-28-2024 Episodic Crushing injury or internal injury (8 sources) Crush injury of right thumb; Translations: [Crushing injury of right thumb, initial encounter] 08-08-2024 Episodic Open wounds of extremities (8 sources) Laceration of right thumb; Translations: [Laceration without foreign body of right thumb without damage to nail, initial encounter] 08-08-2024 Episodic Other ear and sense organ disorders (5 sources) Impacted cerumen; Translations: [Impacted cerumen, bilateral] 09-01-2018 Episodic Other non-traumatic joint disorders (2 sources) Pain in right shoulder; Translations: [Pain in right shoulder] Onset: 11-17-2024 Episodic Other screening for suspected conditions (not mental disorders or infectious disease) (4 sources) Patient encounter status; Translations: [Encounter for screening for malignant neoplasm of colon] 10-21-2024 Episodic Residual codes; unclassified (5 sources) History of operative procedure on lumbar spinal structure; Translations: [Other specified postprocedural states] 09-02-2021 Episodic Spondylosis; intervertebral disc disorders; other back problems (11 sources) Sciatica; Translations: [Sciatica, right side] Episodic Viral infection (4 sources) Disease caused by 2019-nCoV; Translations: [COVID-19] 01-22-2024 Episodic Viral infection (1 source) COVID-19; Translations: [COVID-19] Onset: 01-22-2024 Past or Other Problems Problem Classification Problem Date Documented Da te Episodic/Chronic Immunizations and screening for infectious disease (6 sources) Contact with and (suspected) exposure to other viral communicable diseases; Translations: [Contact with or suspected exposure to other viral communicable disease] Onset: 06-10-2024 06-10-2024 Episodic Other connective tissue disease (1 source) Pain in unspecified finger(s); Translations: [Pain in unspecified finger(s)] Onset: 08-11-2024 Episodic Other upper respiratory infections (8 sources) Acute maxillary sinusitis; Translations: [Acute maxillary sinusitis, unspecified] Onset: 06-10-2024 09-01-2018 Episodic Results Test Name Value Interpretation Reference Range Facility PSA,Total - Annual Screenon 11-24-2024 PSA,TOT SCREEN 0.47 ng/mL Normal 0.02-4.00 [facility] Comment on above: Result Comment: This test was performed using the [employer] tPSA method. Measured values of a patient??sample can vary depending on the testing procedure used. PSA values determined on patient samples by different testing procedures cannot be used interchangeably. If there is a change in PSA assays while monitoring therapy, sequential testing should be performed to confirm baseline values. Performed By: #### L [phone] #### [facility] [address] [place], [place], [address] Shoulder min 2 Viewson 11-11 Shoulder min 2 Views [facility] [address] [place] [address] Shoulder min 2 Views MR#: [id number] Acct: [id number] Name: LESLEY MCCLOUD Rep #: [id number] : 1960 M 64 From: Barrett valerio MD PCP: Dr. Bakari Mendieta MD Status: REG CLI Study: Shoulder min 2 Views Date of Exam: 11/11/24 Exam# [id number] Ordering Dr: Cathi Huynh NP, NP PROCEDURE: SHOULDER MIN 2 VIEWS 11/11/2024 REASON FOR EXAM: SHOULDER PAIN TECHNIQUE: SHOULDER MIN 2 VIEWS COMPARISON: None FINDINGS: Bones: Unremarkable Joints: Normal alignment of the acromioclavicular and glenohumeral joints. Soft tissues: Soft tissues are unremarkable. Other: RAD/Shoulder min 2 Views IMPRESSION: NO ACUTE FRACTURE OR DISLOCATION. Reading Location: [place] [address] CC: Cathi Huynh; Dr. Bakari Mendieta MD Clean Room Technician: Signed Normal [facility] Gastroenterology Visit Repor ton 10-21-2024 Gastroenterology Visit Report [facility] [address] [place] [address] OFFICE VISIT Date of Service: 10/21/24 MR#: [id number] Acct: [id number] Name: LESLEY MCCLOUD Rep #: [id number] : 1960 Provider: AGA stone Age/Sex: 64/M Location[place] [facility] [place] Status: Signed Intake Vital Signs 01/22/24 09:19 Height 5 ft 9 in Intake Visit Reasons: PRE COLONOSCOPY Allergies No Known Allergies Allergy (Verified 10/21/24 08:31) Medications ???Medication ???Instructions ???Recorded ???Confirmed ???Type ascorbate calcium (vitamin C) 500 500 mg PO DAILY 06/10/21 10/21/24 History mg tablet cholecalciferol (vitamin D3) 50 50 mcg PO DAILY 06/10/21 10/21/24 History mcg (2,000 unit) capsule ferrous sulfate 325 mg (65 mg 325 mg PO MOWEFR 06/10/21 10/21/24 History iron) tablet echinacea 450 mg capsule 760 mg PO DAILY 07/09/21 10/21/24 History kfpe-zwmfj-ou7-dha-epa -fish-sterols 2 cap PO DAILY 07/09/21 5 History 375 mg-100 mg-36 mg-54 mg capsule (Glucosamine Chondroitin PLUS) multivitamin 1 tab PO DAILY 07/09/21 10/21/24 H istory cephalexin 500 mg capsule 500 mg PO TID #21 caps 08/08/24 Rx Have you fallen in the past year?: No PFSH Medical History Laceration of right thumb Crushing injury of right thumb Wears glasses Alcohol use Arthritis Non-smoker History of pain when walking Cardiology follow-up encounter History of irregular heartbeat Surgical History History of back surgery Hx of colonoscopy Family History Father Cancer Heart disease Social History Smoking Status: Never smoker alcohol intake: current details: 2-3 drinks per week HPI HPI Details: LESLEY MCCLOUD, is a 64 M who presents to the office today for establishment with [facility] for screening colonoscopy. He states that his is a patient of our group and is happy with her care. He states that his last colonoscopy was done at age 49 and that he promised his to get a repeat colonoscopy following her incidence of GI bleeding requiring a hospital admission. His last colonoscopy was unremarkable. He denies having any GI concerns. Reports daily BMs, if not twice, and complete without straining. He denies hematochezia and melena. Takes oral iron supplement because he donates blood frequently because he's O negative blood type. He denies food allergies and sensitivities. ROS Const Constitutional: No chills, fatigue, fever(s) or weight change Eyes Eyes: No change in vision ENT ENT: No abnormal hearing or difficulty swallowing Resp Respiratory: No cough Cardio Cardiology: No chest pain at rest, chest pain with exertion or leg pain with exertion Gastro GI: No abdominal pain, belching, bloating, change in bowel habits, change in stool character, coffee ground emesis, constipation, cramping, diarrhea, heartburn, difficulty swallowing, feeling full early, excessive flatus, incontinent of stools, Vomiting blood/hematemesis, Blood in stool, loose stools, Black,tarry stools, nausea/dyspepsia, pain with swallowing, vomiting or other Musc Musculoskeletal: No joint pain or leg pain with exertion Skin Skin: No yellowing of the eye or itchy eyes Neuro Neurology: No abnormal hearing Psych Psychiatric: No anxiety and No depression Endo Endocrine: No fatigue or weight change Aller/Imm Allergy/Immunologic: No food intolerance or itchy eyes Yamil/Lymp Hematologic/Lymphatic: No easy bleeding or easy bruising Exam Const General: cooperative, healthy appearing, comfortable, no acute distress and well groomed Nutritional Appearance: average body habitus Orientation: alert and oriented x3 HENMT Head: normal to inspection Ears: hearing grossly normal bilaterally Eyes General: appearance normal, both eyes and all related structures Sclera: sclerae normal Neck Neck: normal visual inspection and full ROM Chest Chest palpation inspection: normal inspection of the chest Resp Effort Inspection: normal respiratory effort, able to speak in complete sentences and symmetric chest movement GI Inspection: normal to inspection Skin General: no rashes or lesions noted Neuro General: patient alert, patient oriented x3 and moves all extremities Cognition: normal cognition Speech: speech normal Gait: normal gait Extrem General: full ROM Psych Appearance: well kempt Mental Status: mental status grossly normal Mood: congruent mood Judgment: judgment good Assessment and Plan Assessment and Plan (1) Encounter for screening colonoscopy: Status: Acute Plan LESLEY MCCLOUD, is a 64 (more content not included)... Normal [facility] Finger(s) Min 2 Viewson 040 Finger(s) Min 2 Views [facility] Imaging Services [address] [place] [address] Finger(s) Min 2 Views MR#: [id number] Acct: [id number] Name: LESLEY MCCLOUD Rep #: [id number] : 1960 M 64 From: Ruben Mac DO PCP: Dr. Bakari Mendieta MD Status: REG CLI Study: Finger(s) Min 2 Views Date of Exam: 08/08/24 Exam# [id number] Ordering Dr: Syed Delcid PROCEDURE: FINGER(S) MIN 2 VIEWS 08/08/2024 REASON FOR EXAM: PAIN TECHNIQUE: 3 view(s) of the thumb of the left hand COMPARISON: None. FINDINGS: Bones: Mineralization is normal. No fracture. Unremarkable Joints: The articular surfaces are maintained. Soft tissues: Unremarkable. Other: RAD/Finger(s) Min 2 Views IMPRESSION: No acute process. [facility] CC: Dr. Bakari Mendieta MD; JONATHAN Short Clean Room Technician: Signed Normal [facility] Urgent Care Visit Reporton 0 08-08-2024 Urgent Care Visit Report [facility] [address], [address] [place] [address] OFFICE VISIT Date of Service: 08/08/24 MR#: [id number] Acct: [id number] Name: LESLEY MCCLOUD Rep #: [id number] : 1960 Provider: JONATHAN Short Age/Sex: 64/M Location: [facility] [place] Status: Signed Intake Vital Signs 01/22/24 09:19 08/08/24 14:32 Height 5 ft 9 in BP 130/90 H Position Sitting Pulse 71 Temp 98.0 F Temp Source Oral Pulse Oximetry (%) 96 Oxygen Delivery Method room air Intake Visit Reasons: R THUMB INJURY Accompanied by: Self Is patient in pain?: Yes Pain scale (1-10): 3 Allergies No Known Allergies Allergy (Verified 06/10/24 11:01) Have you fallen in the past year?: No Nurse's Note: Patient got his thumb between a hammer handle, spare tire and concrete floor. Patient is unsure of his last Tdap. [facility] Medical History (Updated 08/08/24 @ 15:22 by JONATHAN Glynn) Laceration of right thumb Crushing injury of right thumb Wears glasses Alcohol use Arthritis Non-smoker History of pain when walking Cardiology follow-up encounter History of irregular heartbeat Surgical History (Updated 01/22/24 @ 09:38 by Danyell Yepez) History of back surgery Hx of colonoscopy Family History Father Cancer Heart disease Social History Smoking Status: Never smoker alcohol intake: current details: 2-3 drinks per week HPI HPI Details: LESLEY MCCLOUD, is a 64 M who presents to the office today for [facility] evaluation of the [facility] for right thumb crush injury. Patient notes while at home removing a spare tire Neath his truck, the tire fell crushing his thumb between the tire and the cement floor. He has localized moderate aching discomfort is same aggravated with range of motion and IPJ. PMH NC. Dfkhm-fylk-udzcxyco. Td up-to-date last updated in 2019. No loss of sensation or strength or function at injury site or distally. No other associated symptoms and no other alleviating/aggravatin g factors. ROS Const Constitutional: No other (as above) Exam Const General: cooperative, healthy appearing and no acute distress Orientation: alert and awake Resp Effort Inspection: normal respiratory effort and able to speak in complete sentences Cardio Rate: regular rate Pulses: radial pulses present Skin General: no rashes or lesions noted Neuro General: patient alert and patient awake Cognition: normal cognition Speech: speech normal Extrem General: normal to inspection, full ROM, capillary refill normal and normal exam except as noted (3.5 cm laceration 2.5 cm laceration to right thumb) Psych Appearance: grossly normal Mental Status: mental status grossly normal Mood: congruent mood Affect: normal affect Speech and Movement: speech and movement normal Attitude: cooperative Office Procedures Laceration Repair Procedure performed by: Syed Delcid Explained risks and benefits to parent: Yes Informed consent given: Yes Consent signed: No (verbal consent given) Sedation: No Anesthesia: 2% lidocaine (Field block 1.5 mL to 3.5 cm site, 1 mL to 2.5 cm site) Irrigation: saline Preparation: chlorhexidine Wound exploration: none Deep closure: No Skin closure: nylon (x5 SI to 3.5 CM site, x3 SI to 2.5 cm site (4-0 Ethilon)) Topical treatment: mupiricin Tetanus toxoid ordered: No Patient tolerated procedure: well Complications: No Coding Level of Care Code Attention Guillermo Diagnoses Crushing injury of right thumb S67.01XA Laceration of right thumb S61.011A Comment [id number], [id number] Assessment and Plan Assessment and Plan (1) Crushing injury of right thumb: Status: Acute (2) Laceration of right thumb: Status: Acute Plan: Right thumb radiographs reveal no acute osseous pathology per my review, pending radiologist interpretation time patient discharged. See procedure note for x 2 laceration site repairs. Twice daily wound care as instructed today. Cephalexin as prescribed today. Supportive measures as instructed today. Follow-up with PCP or the [facility] in 7 to 10 days for reassessment or likely suture removal, sooner should symptoms only worsen or any other concerns develop. Patient states acknowledging understanding all the above. This note was generated with [employer] dictation software. It may contain incorrect words, spelling, and punctuation that were not noted in checking the note before signing. Orders: Orders Finger(s) Min 2 Views Today M79.646 - Pain in unspecified finger(s) Medications: New cephalexin 500 mg PO TID 21 caps 0RF Clinical Quality Measures Falls Risk Screening/Assistive Devices Have you fallen in the past year?: No (more content not included)... Normal [facility] Urgent Care Visit Reporton 0 06-10-2024 Urgent Care Visit Report [facility] [address], [address] [place] [address] OFFICE VISIT Date of Service: 06/10/24 MR#: [id number] Acct: [id number] Name: ULICESLUCASLESLEY MELVI Rep #: [id number] : 1960 Provider: JONATHAN Buckner Age/Sex: 63/M Location: [facility] [place] Status: Signed Intake Vital Signs 01/22/24 09:19 06/10/24 11:00 Height 5 ft 9 in BP 136/80 H 144/78 H Blood Pressure Location Rt brachial Lt brachial Position Sitting Sitting Respiration 17 15 Pulse 89 72 Pulse Source NIBP NIBP Temp 97.8 F 99.4 F H Temp Source Temporal Oral Pulse Oximetry (%) 96 96 Oxygen Delivery Method room air room air Intake Visit Reasons: Cough Chief Complaint: cough, drainage, BA, mucus Neuroradiologist Required: No Is patient in pain?: No Allergies No Known Allergies Allergy (Verified 06/10/24 11:01) Have you fallen in the past year?: No Nurse's Note: cough, drainage, BA, mucus x 3 days. denies fever [facility] Medical History (Updated 06/10/24 @ 11:23 by Jay CASTILLO, PA) Wears glasses Alcohol use Arthritis Non-smoker History of pain when walking Cardiology follow-up encounter History of irregular heartbeat Surgical History (Updated 01/22/24 @ 09:38 by Danyell Yepez) History of back surgery Hx of colonoscopy Family History Father Cancer Heart disease Social History Smoking Status: Never smoker alcohol intake: current details: 2-3 drinks per week HPI HPI Chief Complaint: cough, drainage, BA, mucus Details: LESLEY MCCLOUD, is a 63 M who presents to the office today for complaint of cough, sinus congestion/pressure and pain and headache. Patient denies fever, chills, sweats. No nausea, vomiting or diarrhea. No loss of taste or smell. No other associated symptoms or alleviating/aggravatin g factors. ROS Const Constitutional: No other (6 system ROS completed with pertinent findings in the HPI otherwise normal.) Exam Const General: cooperative and healthy appearing [facility] Head: normal to inspection Ears: hearing grossly normal bilaterally, TM's normal bilaterally and EAC's normal Nose: nasal discharge purulent Face and sinus: sinus tenderness frontal and maxillary Mouth: oral mucosae normal Throat: abnormal tonsil bilaterally erythema and hypertrophy 1+ and postnasal drainage Resp Effort Inspection: normal respiratory effort Auscultation: Bilateral: Clear to Auscultation Cardio Palpation: normal PMI Rate: regular rate Rhythm: regular rhythm Neuro General: patient alert and CN's II-XI intact bilaterally Psych Appearance: grossly normal Mental Status: mental status grossly normal Coding Level of Care Code Off vis,est,level 3 Diagnoses Contact with or suspected exposure to other viral communicable disease Z20.828 Maxillary sinusitis, acute J01.00 Assessment and Plan Assessment and Plan (1) Contact with or suspected exposure to other viral communicable disease: Status: Acute (2) Maxillary sinusitis, acute: Status: Acute Plan: Patient tested negative for influenza and COVID in the office today. Augmentin as prescribed today. Encouraged to get plenty of rest, drink lots of clear liquids, and use Tylenol or Ibuprofen (unless contraindicated) for fever and comfort. Patient also educated on other symptomatic management techniques. To be seen in 7-10 days if no improvement; sooner if worsening of symptoms. Patient advised of potential red flags and when appropriate to report to the ED. Patient verbalized understanding and agreement with all the above. Orders: Orders POC Ty Covid FLUAB PCR Today Medications: New amoxicillin-pot clavulanate 875-125 mg 1 TAB PO Q12H 20 tabs 0RF 10 days J01.90 - Acute sinusitis, unspecified Clinical Quality Measures Falls Risk Screening/Assistive Devices Have you fallen in the past year?: No 06/10/24 1123 Date [facility] Signature: Date (if applicable) CC: Normal [facility] Urgent Care Visit Reporton 0 01-28-2024 Urgent Care Visit Report [facility] [address], [address] [place] [address] OFFICE VISIT Date of Service: 01/28/24 MR#: [id number] Acct: [id number] Name: LESLEY MCCLOUD Rep #: [id number] : 1960 Provider: JONATHAN Buckner Age/Sex: 63/M Location: [facility] Status: Signed Intake Vital Signs 01/22/24 09:19 Height 5 ft 9 in BP 136/80 H Blood Pressure Location Rt brachial Position Sitting Respiration 17 Pulse 89 Pulse Source NIBP Temp 97.8 F Temp Source Temporal Pulse Oximetry (%) 96 Oxygen Delivery Method room air Intake Visit Reasons: DOT PHYSICAL/ SELF PAY Chief Complaint: DOT Allergies No Known Allergies Allergy (Verified 01/22/24 09:38) PFSH Medical History (Updated 01/28/24 @ 09:25 by JONATHAN Jeronimo) Wears glasses Alcohol use Arthritis Non-smoker History of pain when walking Cardiology follow-up encounter History of irregular heartbeat Surgical History (Updated 01/22/24 @ 09:38 by Danyell Yepez) History of back surgery Hx of colonoscopy Family History Father Cancer Heart disease Social History Smoking Status: Never smoker alcohol intake: current details: 2-3 drinks per week HPI HPI Chief Complaint: DOT Details: LESLEY MCCLOUD, is a 63 M who presents to the office today for DOT physical. Please see corresponding scanned documents with today's date. Office Procedures Physical Exam Coding PE Coding DOT PE: Yes Coding Level of Care Code No Charge Diagnoses Encounter for examination required by Department of Transportation (DOT) Z02.89 Assessment and Plan Assessment and Plan (1) Encounter for examination required by Department of Transportation (DOT): Status: Acute 01/28/24926 Date [facility]: Date (if applicable) CC: Normal [facility] Urgent Care Visit Reporton 0 01-22-2024 Urgent Care Visit Report [facility] [address], [address] [place] [address] OFFICE VISIT Date of Service: 01/22/24 MR#: [id number] Acct: [id number] Name: LESLEY MCCLOUD Rep #: [id number] : 1960 Provider: JONATHAN Buckner Age/Sex: 63/M Location: [facility] Status: Signed Intake Vital Signs 07/23/21 16:59 01/22/24 09:19 Height 5 ft 9 in 5 ft 9 in BP 136/80 H Blood Pressure Location Rt brachial Position Sitting Respiration 17 Pulse 89 Pulse Source NIBP Temp 97.8 F Temp Source Temporal Pulse Oximetry (%) 96 Oxygen Delivery Method room air Intake Visit Reasons: POSITIVE HOME COVID TEST Chief Complaint: PIERCE, cough, brain fog, mucus Neuroradiologist Required: No Is patient in pain?: No Allergies No Known Allergies Allergy (Verified 01/22/24 09:38) Have you fallen in the past year?: No Nurse's Note: PIERCE, cough, brain fog, mucus x 4 days. positive home covid, would like test to confirm [facility] Medical History (Updated 01/22/24 @ 10:22 by Jay CASTILLO, PA) Wears glasses Alcohol use Arthritis Non-smoker History of pain when walking Cardiology follow-up encounter History of irregular heartbeat Surgical History (Updated 01/22/24 @ 09:38 by Danyell Yepez) History of back surgery Hx of colonoscopy Family History Father Cancer Heart disease Social History Smoking Status: Never smoker alcohol intake: current details: 2-3 drinks per week HPI HPI Chief Complaint: PIERCE, cough, brain fog, mucus Details: LESLEY MCCLOUD, is a 63 M who presents to the office today for complaint of headache, cough and sinus congestion for the past 2 to 3 days. Patient states he believes he just had a sinus infection however took a COVID test this morning at home which was positive. He denies fever, chills, sweats. No nausea, vomiting or diarrhea. No hemoptysis, shortness of breath or difficulty breathing. No other associated symptoms or alleviating/aggravatin g factors. ROS Const Constitutional: No other (6 system ROS completed with pertinent findings in the HPI otherwise normal.) Exam Const General: cooperative and well developed HENMT Head: normal to inspection and atraumatic Ears: hearing grossly normal bilaterally Nose: nasal discharge clear Face and sinus: normal facial exam Resp Effort Inspection: normal respiratory effort and no audible wheezes Auscultation: Bilateral: Clear to Auscultation Cardio Rate: regular rate Rhythm: regular rhythm Neuro General: patient alert Psych Appearance: grossly normal Mental Status: mental status grossly normal Results POC TY Covid FluAB PCR POC Ty Covid PCR Detected Last Edit by Danyell Yepez on 01/22/24 09:59 POC TY FLU NOT DETECTED FLU A B Last Edit by Danyell Yepez on 01/22/24 09:59 Coding Level of Care Code Off vis,new,level 3 Diagnoses COVID-19 U07.1 Assessment and Plan Assessment and Plan (1) COVID-19: Status: Acute Orders: Orders POC Ty Covid FLUAB PCR Today Plan Patient tested positive for COVID in the office today. Patient elected not to have treatment and treat conservatively. Encouraged to get plenty of rest, drink lots of clear liquids, and use Tylenol or Ibuprofen (unless contraindicated) for fever and comfort. Patient also educated on other symptomatic management techniques. To be seen in 7-10 days if no improvement; sooner if worsening of symptoms. Patient advised of potential red flags and when appropriate to report to the ED. Patient verbalized understanding and agreement with all the above. Clinical Quality Measures Falls Risk Screening/Assistive Devices Have you fallen in the past year?: No 01/22/24 1027 Date Jay Aburto Signature: Date (if applicable) [facility]: [facility] ) LESLEY MCCLOUD ([id number]) 1960 M Date Time Provider Department 02/06/21 6:00 PM JESSICA BUCKNER [facility] During your visit today, we recorded the following information about you: Temperature Pulse Respiration Blood pressure 97.7 degrees 67/minute 18/minute 168/98 Weight 85.9 kg Jessica Buckner APRN.CNP 02/06/2021 6:20 PM Signed ASSESSMENT/PLAN: 1. Sciatica, right side - ICD9: 724.3, ICD10: M54.31 - Ice to lumbar spine - Prednisone taper- see orders - PREDNISONE 10 MG TABLET - CYCLOBENZAPRINE 10 MG TABLET - avoid lifting, bending, twisting turning. - Follow-up with your PCP in 3-5 days if symptoms have not improved or sooner if symptoms worsen - Discussed red flags and need for immediate medical evaluation if any occur. - Discussed supportive care treatment with fluids, rest and analgesia. - Discussed expected course of illness Jessica Buckner APRN.THIRD MATE SCIATICA: Your exam shows you have sciatica, a condition most often seen in patients with disc disease of the lower back. Sciatica causes pain to radiate from the lower back or buttock area down the leg. It results from pressure on nerve roots coming out of the spine when a disc deteriorates and pushes to one side. Often there is a history of back problems. In most cases sciatica improves greatly with conservative treatment. Most patients with it are completely better after 2-4 weeks of bed rest and other supportive care. Bed rest reduces the disc pressure greatly; sitting is the worst position since the pressure on the disc is over 5 times greater than it is while lying down. You should avoid bending, lifting, and all other activities which make the problem worse. After the pain improves, you may continue with normal activity, taking brief periods for bed rest throughout the day until you are back to normal. Aspirin, ibuprofen, or other anti-inflammatory drugs are often used to help control pain. Muscle relaxants may help by relieving spasm and providing mild sedation. Cold or heat therapy and massage may also give significant relief. Spinal manipulation is not recommended because it can increase the degree of disc protrusion. Surgery is reserved for patients that do not improve with conservative treatment, or who have signs of severe nerve root pressure. You should see your doctor for follow up care as recommended. A program for back injury rehabilitation with stretching and strengthening exercises is an important part of management. Please call your doctor, a back specialist, or the emergency room right away if you notice increased pain, weakness, or numbness in your legs, or if you have any difficulty with bladder or bowel control. Jessica Buckner APRN.DERRICK 02/06/2021 6:29 PM Signed Subjective HPI Lesley Mccloud is a 60 year old male who presents with pain in his right thigh. This started today after bouncing around on his skid steer while putting in a lawn for a customer. He has a history of degenerative disc disease and sciatica. He denies any specific injury. Rates his pain 9/10, he cannot sit as it makes the pain worse. Describes the pain as sharp and burning. He took ibuprofen and applied ice to his low back. Review of Systems Constitutional: Negative for chills and fever. Respiratory: Negative. Cardiovascular: Negative. Musculoskeletal: Positive for back pain. Negative for falls and joint pain. BP 168/98 Pulse 67 Temp 36.5 ?C (97.7 ?F) Resp 18 Wt 85.9 kg (189 lb 6.4 oz) SpO2 98% No past medical history on file. No past surgical history on file. ALLERGIES Patient has no known allergies. MEDICATIONS predniSONE (DELTASONE) 10 mg tablet Take 6 tabs for 3 days, then 4 tabs for 3 days, then 2 tabs for 3 days then 1 tab for 3 days with food. cyclobenzaprine (FLEXERIL) 10 mg tablet Take 1 tablet by mouth three times daily. No family history on file. Social History Tobacco Use - Smoking status: Never Smoker - Smokeless tobacco: Never Used Substance Use Topics - Alcohol use: Not on file - Drug use: Not on file Objective Physical Exam Vitals and nursing note reviewed. Constitutional: Appearance: Normal appearance. Cardiovascular: Rate and Rhythm: Normal rate. Pulmonary: Effort: Pulmonary effort is normal. Musculoskeletal: Legs: Skin: General: Skin is warm and dry. Findings: No erythema or rash. Neurological: Mental Status: He is alert. Motor: No weakness. Gait: Gait normal. Deep Tendon Reflexes: Reflexes normal. Reflex Scores: Patellar reflexes are 1+ on the right side and 1+ on the left side. ASSESSMENT/PLAN: 1. Sciatica, right side - ICD9: 724.3, ICD10: M54.31 - Ice to lumbar spine - Prednisone taper- see orders - PREDNISONE 10 MG TABLET - CYCLOBENZAPRINE 10 MG TABLET - avoid lifting, bending, twisting turning. - Offered x (more content not included)... Normal [facility] Vital Signs Date Time Vital Sign Value Performing Clinician Maico cuevas 08-08-2024 14:32-0400 Body temperature 98 [degF] Dr. Bakari Mendieta MD Work Phone: [facility] 08-08-2024 14:32-0400 Diastolic blood pressure 90 mm[Hg] Dr. Bakari Mendieta MD Work Phone: [facility] 08-08-2024 14:32-0400 Heart rate 71 /min Dr. Bakari Mendieta MD Work Phone: [facility] 08-08-2024 14:32-0400 SaO2% (BldA) [Mass fraction] 96 % Dr. Bakari Mendieta MD Work Phone: [facility] 08-08-2024 14:32-0400 Systolic blood pressure 130 mm[Hg] Dr. Bakari Mendieta MD Work Phone: [facility] 06-10-2024 11:00-0500 Body temperature 99.4 [degF] Dr. Bakari Mendieta MD Work Phone: [facility] 06-10-2024 11:00-0500 Diastolic blood pressure 78 mm[Hg] Dr. Bakari Mendieta MD Work Phone: [facility] 06-10-2024 11:00-0500 Heart rate 72 /min Dr. Bakari Mendieta MD Work Phone: [facility] 06-10-2024 11:00-0500 Respiratory rate 15 /min Dr. Bakari Mendieta MD Work Phone: [facility] 06-10-2024 11:00-0500 SaO2% (BldA) [Mass fraction] 96 % Dr. Bakari Mendieta MD Work Phone: [facility] 06-10-2024 11:00-0500 Systolic blood pressure 144 mm[Hg] Dr. Bakari Mendieta MD Work Phone: [facility] 02-06-2021 18:05-0400 Body temperature 97.7 [degF] Jessica Praisler-Wood [employer].THIRD MATE Work Phone: [facility] 02-06-2021 18:05-0400 Body weight 85.91 kg Jessica Praisler-Wood [employer].THIRD MATE Work Phone: [facility] 02-06-2021 18:05-0400 Diastolic blood pressure 98 mm[Hg] Jessica Praisler-Wood [employer].THIRD MATE Work Phone: [facility] 02-06-2021 18:05-0400 Heart rate 67 /min Jessica Praisler-Wood [employer].THIRD MATE Work Phone: [facility] 02-06-2021 18:05-0400 Respiratory rate 18 /min Jessica Praisler-Wood [employer].THIRD MATE Work Phone: [facility] 02-06-2021 18:05-0400 SaO2% (BldA) [Mass fraction] 98 % Jessica Praisler-Wood [employer].THIRD MATE Work Phone: [facility] 02-06-2021 18:05-0400 Systolic blood pressure 168 mm[Hg] Jessica Praisler-Wood [employer].THIRD MATE Work Phone: [facility] Encounters Encounter Date Encounter Type Care Provider Facility Start: 12-16-2024 ambulatory Bakari Nina lity:[facility] Start: 12-07-2024 ambulatory Bakari Nina lity:[facility] Start: 11-30-2024 Encounter for genera l adult medical examination without abnormal findings Cathi Huynh NP [facility] Start: 11-24-2024 End: 11-24-[address] Bakari Mendieta MD Work Phone: -Laboratory [facility] Start: 11-24-2024 End: 11-24-2024 Patient encounter procedure Cathi Huynh NP-C -Laboratory [facility] Start: 11-24-2024 End: 11-24-2024 ambulatory Bakari Mendieta Facility:[facility] Start: 11-11-2024 End: 11-11-[address] Bakari Mendieta MD Work Phone: -Radiology [place] Start: 11-11-2024 End: 11-11-2024 Patient encounter procedure Cathi Huynh ACCOUNTS RECEIVABLE COLLECTOR-C -Radiology [place] Work Phone: Start: 11-11-2024 End: 11-11-2024 ambulatory Bakari Mendieta Facility:[facility] Start: 10-21-2024 End: 10-21-2024 Patient encounter procedure Pam Fitch ACCOUNTS RECEIVABLE COLLECTOR-C -[facility] Work Phone: Start: 10-21-2024 End: 10-21-[address] Bakari Mendieta MD Work Phone: [facility] Work Phone: Start: 08-08-2024 End: 08-08-2024 Patient encounter procedure Syed Delcid [facility] Work Phone: Start: 08-08-2024 End: 08-08-[address] Bakari Mendieta MD Work Phone: [facility] Work Phone: Start: 08-08-2024 End: 08-08-2024 ambulatory Syed CASTILLO Facility:[facility] Start: 06-10-2024 End: 06-10-2024 Patient encounter procedure Jay Siddiqi PA -[facility] Work Phone: Start: 06-10-2024 End: 06-10-2024 ambulatory Bakari Mendieta Facility:[facility] Start: 01-28-2024 End: 01-28-2024 ambulatory Bakari Mendieta Facility:[facility] Start: 01-22-2024 End: 01-22-2024 ambulatory Bakari Mendieta Facility:[facility] Start: 12-30-2022 End: 12-30-2022 ambulatory [facility] Work Phone: Start: 12-30-2022 End: 12-30-2022 Patient encounter procedure [facility]-Radiology, [place] Work Phone: Start: 02-06-2021 End: 02-06-2021 Patient encounter procedure Jessica Buckner APRN.THIRD MATE Work Phone: [facility] Comment on above: Sciatica, right side (Primary Dx) Procedures Date Procedure Procedure Detail Performing Clinician Start: 11-24-2024 Prostate specific an tigen measurement Dr. Bakari Mendieta MD Work Phone: Comment on above: This test was perfor med using the [employer] tPSA method. Measured values of a patient sample can vary depending on the testing procedure used. PSA values determined on patient samples by different testing procedures cannot be used interchangeably. If there is a change in PSA assays while monitoring therapy, sequential testing should be performed to confirm baseline values. Start: 11-11-2024 Plain X-ray of shoulder Dr. Bakari Mendieta MD Work Phone: Start: 08-08-2024 Plain X-ray of finger Kd Mendieta MD Work Phone: Start: 12-30-2022 Plain X-ray of tibia and fibula Start: 12-30-2022 Radiography of ankle Plan of Treatment Date Care Activity Detail Author Start: 01-02-2021 Influenza vaccination INFLUENZA (#1) [facility] Start: 07-16-2014 PROSTATE CANCER SCREENING DISCUSSION PROSTATE CANCER SCREENING DISCUSSION [facility] Start: 07-16-2009 SHINGRIX VACCINE (1 of 2) SHINGRIX VACCINE (1 of 2) [facility] Start: 07-16-2004 COLOGUARD (FIT-DNA) COLOGUARD (FIT-DNA) [facility] Start: 07-16-2004 Colonoscopy COLONOSCOPY [facility] Start: 07-16-2004 COLORECTAL CANCER SCREENING COLORECTAL CANCER SCREENING [facility] Start: 07-16-[address] COLONOGRAPHY [facility] Start: 07-16-2004 DIABETES SCREEN DIABETES SCREEN [facility] Start: 07-16-2004 FECAL OCCULT BLOOD FECAL OCCULT BLOOD [facility] Start: 07-16-2004 SIGMOIDOSCOPY SIGMOIDOSCOPY [facility] Start: 07-16-1994 LIPID SCREEN LIPID SCREEN [facility] Start: 07-16-1978 Urine microalbumin profile DTAP,TDAP,TD (1 - Tdap) [facility] Start: 07-16-1977 HEPATITIS C SCREENING HEPATITIS C SCREENING [facility] Start: 07-16-1977 HIV SCREENING HIV SCREENING [facility] Start: 1971 Adult depression screening assessment DEPRESSION SCREENING [facility] Immunizations Immunization Date Immunization Notes Care Provider Fa cility 01-23-2019 tetanus toxoid, redu sasha diphtheria toxoid, and acellular pertussis vaccine, adsorbed [facility] Payers Date Payer Category Payer Medicare [id number] 2024 Self-pay [id number] 2024 Unknown [id number] 2020 Unknown [employer] [place] [id number] 2020-Present Indemnity [id number] Unknown [id number] Unknown [id number] Unknown [id number] Unknown [id number] Unknown [id number] Unknown [id number] Unknown [id number] Unknown [id number] Unknown [id number] Unknown [id number] Unknown [id number] Social History Date Type Detail Facility Start: 02-06-2021 End: 10-21-2024 Tobacco smoking status NHIS Never smoker [facility] Start: 02-06-2021 Tobacco use and exposure Never used [facility] Start: 1960 Sex Assigned At Not on file [facility] Exposure to SARS-CoV -2 (event) Not sure [facility] Start: 09-02-2021 Tobacco smoking stat us NHIS Unknown if ever smoked [facility] Start: 1960 Sex Assigned At Male W [facility] Start: 08-11-2024 Sex Male (finding) [facility] Medical Equipment Procedure Code Equipment Code Equipment Origin al Text Equipment Identifier Dates PATCH,AMNION 2X3CM FDA Start: 07-23-2021 PATCH,AMNION 2X3CM FDA Start: 07-23-2021 PATCH,AMNION 2X3CM FDA Start: 07-23-2021 PATCH,AMNION 2X3CM FDA Start: 07-23-2021 PATCH,AMNION 2X3CM FDA Start: 07-23-2021 Clinical Notes 02-06-2021 to 11-11-2024 Note Date & Type Note Facility 11-11-2024 Radiology Diagnostic study note [facility] Services [address] [place] [address] [id number] Shoulder min 2 Views MR#: [id number] Acct: [id number] Name: LESLEY MCCLOUD Rep #: [id number] : 1960 M 64 From: Andry Hoffman MD PCP: Dr. Bakari Mendieta MD Status: REG CLI Study:Shoulder min 2 Views Date of Exam: 11/11/24 Exam# [id number] Ordering Dr: Cathi Huynh NP ACCOUNTS RECEIVABLE COLLECTOR-C PROCEDURE: SHOULDER MIN 2 VIEWS 11/11/2024 REASON FOR EXAM: SHOULDER PAIN TECHNIQUE: SHOULDER MIN 2 VIEWS COMPARISON: None FINDINGS: Bones: Unremarkable Joints: Normal alignment of the acromioclavicular and glenohumeral joints. Soft tissues: Soft tissues are unremarkable. Other: RAD/Shoulder min 2 Views IMPRESSION: NO ACUTE FRACTURE OR DISLOCATION. Reading Location: [facility] CC: Cathi Huynh; Dr. Bakari Mendieta MD ~ Clean Room Technician: Signed [facility] 08-08-2024 Evaluation note Diagnosis Onset Date Resolution Crushing injury of right thumb acute August 08, 2024 2:10pm Laceration of right thumb acute August 08, 2024 2:10pm [facility] Work Phone: 1(134) 875-695604-07-2025 Evaluation note* Diagnosis Onset Date Resolution Status Admit Date Crushing injury of right thumb acute August 08, 2024 2:10pm Laceration of right thumb acute August 08, 2024 2:10pm Encounter for screening colonoscopy acute October 21, 2024 8:18am [facility] Work Phone: 1(541) 212-901904-07-2025 Radiology Diagnostic study note [facility] Imaging Services [address] [place] [address] Finger(s) Min 2 Views MR#: [id number] Acct: [id number] Name: LESLEY MCCLOUD Rep #: [id number] : 1960 M 64 From: Pet er Peer DO PCP: Dr. Bakari Mendieta MD Status: REG CLI Study:Finger(s) Min 2 Views Date of Exam: 08/08/24 Exam# [id number] Ordering Dr: St maico Delcid PROCEDURE: FINGER(S) MIN 2 VIEWS 08/08/2024 REASON FOR EXAM: PAIN TECHNIQUE: 3 view(s) of the thumb of the left hand COMPARISON: None. FINDINGS: Bones: Mineralization is normal. No fracture. Unremarkable Joints: The articular surfaces are maintained. Soft tissues: Unremarkable. Other: RAD/Finger(s) Min 2 Views IMPRESSION: No acute process. Reading [facility] CC: Dr. Bakari Mendieta MD; JONATHAN hSort ~ Clean Room Technician: Signed [facility]02-07-2025 Evaluation note* Diagnosis Onset Date Resolution Status Admit Date Contact with or suspected exposure to other viral communicable disease acute June 10:28am Maxillary sinusitis, acute acute June 10, 2024 10:28am Crushing injury of right thumb acute August 08, 2024 2:10pm Laceration of right thumb acute August 08, 2024 2:10pm [facility] Work Phone: 1([phone]) 887-622010-06-2021 NoteHNO ID: [id number] Author: Jessica Buckner APRN.THIRD MATE Service: ? Author Type: Nurse Practitioner Type: Progress Notes Filed: 02/06/2021 6:29 PM Note Text: Subjective HPI Lesley Mccloud is a 60 year old male who presents with pain in his right thigh. This started today after bouncing around on his skid steer while putting in a lawn for a customer. He has a history of degenerative disc disease and sciatica. He denies any specific injury. Rates his pain 9/10, he cannot sit as it makes the pain worse. Describes the pain as sharp and burning. He took ibuprofen and applied ice to his low back. Review of Systems Constitutional: Negative for chills and fever. Respiratory: Negative. Cardiovascular: Negative. Musculoskeletal: Positive for back pain. Negative for falls and joint pain. BP 168/98 Pulse 67 Temp 36.5 ?C (97.7 ?F) Resp 18 Wt 85.9 kg (189 lb 6.4 oz) SpO2 98% No past medical history on file. No past surgical history on file. ALLERGIES Patient has no known allergies. MEDICATIONS predniSONE (DELTASONE) 10 mg tablet Take 6 tabs for 3 days, then 4 tabs for 3 days, then 2 tabs for 3 days then 1 tab for 3 days with food. cyclobenzaprine (FLEXERIL) 10 mg tablet Take 1 tablet by mouth three times daily. No family history on file. Social History Tobacco Use - Smoking status: Never Smoker - Smokeless tobacco: Never Used Substance Use Topics - Alcohol use: Not on file - Drug use: Not on file Objective Physical Exam Vitals and nursing note reviewed. Constitutional: Appearance: Normal appearance. Cardiovascular: Rate and Rhythm: Normal rate. Pulmonary: Effort: Pulmonary effort is normal. Musculoskeletal: Legs: Skin: General: Skin is warm and dry. Findings: No erythema or rash. Neurological: Mental Status: He is alert. Motor: No weakness. Gait: Gait normal. Deep Tendon Reflexes: Reflexes normal. Reflex Scores: Patellar reflexes are 1+ on the right side and 1+ on the left side. ASSESSMENT/PLAN: 1. Sciatica, right side - ICD9: 724.3, ICD10: M54.31 - Ice to lumbar spine - Prednisone taper- see orders - PREDNISONE 10 MG TABLET - CYCLOBENZAPRINE 10 MG TABLET - avoid lifting, bending, twisting turning. - Offered xray of lumbar spine, patient declined, states he will follow up with his PCP if not improving. - Follow-up with your PCP in 3-5 days if symptoms have not improved or sooner if symptoms worsen - Discussed red flags and need for immediate medical evaluation if any occur. - Discussed supportive care treatment with fluids, rest and analgesia. - Discussed expected course of illness Jessica Buckner APRN.[facility]10-06-2021 History of Present illness Narrative* Jessica Buckner APRN.THIRD MATE - 02/06/2021 6:20 PM EDT Images from the original note were not included. Subjective HPI Lesley Mccloud is a 60 year old male who presents with pain in his right thigh. This started today after bouncing around on his skid steer while putting in a lawn for a customer. He has a history of degenerative disc disease and sciatica. He denies any specific injury. Rates his pain 9/10, he cannot sit as it makes the pain worse. Describes the pain as sharp and burning. He took ibuprofen and applied ice to his low back. Review of Systems Constitutional: Negative for chills and fever. Respiratory: Negative. Cardiovascular: Negative. Musculoskeletal: Positive for back pain. Negative for falls and joint pain. BP 168/98 Pulse 67 Temp 36.5 C (97.7 F) Resp 18 Wt 85.9 kg (189 lb 6.4 oz) SpO2 98% No past medical history on file. No past surgical history on file. ALLERGIES Patient has no known allergies. MEDICATIONS predniSONE (DELTASONE) 10 mg tablet Take 6 tabs for 3 days, then 4 tabs for 3 days, then 2 tabs for3 days then 1 tab for 3 days with food. cyclobenzaprine (FLEXERIL) 10 mg tablet Take 1 tablet by mouth three times daily. No family history on file. Social History Tobacco Use Smoking status: Never Smoker Smokeless tobacco: Never Used Substance Use Topics Alcohol use: Not on file Drug use: Not on file Objective Physical Exam Vitals and nursing note reviewed. Constitutional: Appearance: Normal appearance. Cardiovascular: Rate and Rhythm: Normal rate. Pulmonary: Effort: Pulmonary effort is normal. Musculoskeletal: Legs: Skin: General: Skin is warm and dry. Findings: No erythema or rash. Neurological: Mental Status: He is alert. Motor: No weakness. Gait: Gait normal. Deep Tendon Reflexes: Reflexes normal. Reflex Scores: Patellar reflexes are 1+ on the right side and 1+ on the left side. ASSESSMENT/PLAN: 1. Sciatica, right side - ICD9: 724.3, ICD10: M54.31 - Ice to lumbar spine - Prednisone taper- see orders - PREDNISONE 10 MG TABLET - CYCLOBENZAPRINE 10 MG TABLET - avoid lifting, bending, twisting turning. - Offered xray of lumbar spine, patient declined, states he will follow up with his PCP if not improving. - Follow-up with your PCP in 3-5 days if symptoms have not improved or sooner if symptoms worsen - Discussed red flags and need for immediate medical evaluation if any occur. - Discussed supportive care treatment with fluids, rest and analgesia. - Discussed expected course of illness Jessica Buckner APRN.DERRICK [facility] Instructions* Patient Instructions* Jessica Buckner APRN.CNP - 02/06/2021 6:19 PM EDT ASSESSMENT/PLAN: 1. Sciatica, right side - ICD9: 724.3, ICD10: M54.31 - Ice to lumbar spine - Prednisone taper- see orders - PREDNISONE 10 MG TABLET - CYCLOBENZAPRINE 10 MG TABLET - avoid lifting, bending, twisting turning. - Follow-up with your PCP in 3-5 days if symptoms have not improved or sooner if symptoms worsen - Discussed red flags and need for immediate medical evaluation if any occur. - Discussed supportive care treatment with fluids, rest and analgesia. - Discussed expected course of illness Jessica Buckner APRN.CNP SCIATICA: Your exam shows you have sciatica, a condition most often seen in patients with disc disease of thelower back. Sciatica causes pain to radiate from the lower back or buttock area down the leg. It results from pressure on nerve roots coming out of the spine when a disc deteriorates and pushes to one side. Often there is a history of back problems. In most cases sciatica improves greatly with conservative treatment. Most patients with it are completely better after 2-4 weeks of bed rest and other supportive care. Bed rest reduces the disc pressure greatly; sitting is the worst position since the pressure on the disc is over 5 times greater than it is while lying down. You should avoid bending, lifting, and all other activities which make the problem worse. After the pain improves, you may continue with normal activity, taking brief periods for bed rest throughout the day until you are back to normal. Aspirin, ibuprofen, or other anti-inflammatory drugs are often used to help control pain. Muscle relaxants may help by relieving spasm and providing mild sedation. Cold or heat therapy and massage may also give significant relief. Spinal manipulation is not recommended because it can increase the degree of disc protrusion. Surgery is reserved for patients that do not improve with conservative treatment, or who have signs of severe nerve root pressure. You should see your doctor for follow up care as recommended. A program for back injury rehabilitation with stretching and strengthening exercises is an important part of management. Please call yourdoctor, a back specialist, or the emergency room right away if you notice increased pain, weakness,or numbness in your legs, or if you have any difficulty with bladder or bowel control. documented [facility]* Diagnosis Sciatica, right side- Primary documented [facility] noteNo assessment information availableWMercy Health St[facility] Work Phone: Reason for referral (narrative)No reason for referral information availableWMercy Health St. [facility] Work Phone: Summary Purpose Family History No Family History Records Found Relationship Condition Age at Onset Recorded Date/T alicia father Malignant neoplasm Unknown Cardiac disease Unknown Advance Directives No Advanced Directives Records Found Advance Directive Response Recorded Date/ Time Living Will No July 23, 2021 4:58pm Power of Cosmetology Professor No July 23 4:58pm Chief Complaint and Reason for Visit Chief Complaint Admit Date Cough June 10, 2024 1 0:28am R THUMB INJURY August 08, 2024 2:10 pm pain- FINGER/THUMB, RIGHT HAND August 2:22pm Reason for Visit Admit Date Contact with or suspected ex posure to other viral communicable disease June 10, 2024 10:28am Maxillary sinusitis, acute June 10, 2024 10:28am Crushing injury of right thumb August 2:10pm Laceration of right thumb August 08 2:10pm Chief Complaint Admit Date R THUMB INJURY August 08, 2024 2:10 pm pain- FINGER/THUMB, RIGHT HAND August 2:22pm PRE COLONOSCOPY October 21, 2024 8:18 am Reason for Visit Admit Date Crushing injury of right thumb August 2:10pm Laceration of right thumb August 08 2:10pm Chief Complaint Admit Date R THUMB INJURY August 08, 2024 2:10 pm pain- FINGER/THUMB, RIGHT HAND August 2:22pm PRE COLONOSCOPY October 21, 2024 8:18 am RIGHT SHOULDER November 11, 2024 11:0 7am Reason for Visit Admit Date Crushing injury of right thumb August 2:10pm Laceration of right thumb August 08 2:10pm Encounter for screening colonoscopy October 21, 2024 8:18am Additional Source Comments Source Comments (unrecognize d section and content) In the event this informatio n is protected by the Federal Confidentiality of Alcohol and Drug Abuse Patient Records regulations: The Federal rules restrict any use of the information to criminally investigate or prosecute any alcohol or drug abuse patient.[facility] Reason for Visit (unrecogniz ed section and content) Reason Comments Low Back Pain R side low back pain into buttocks x this AM (unrecognized sect ion and content) No Status Records FoundNo Status Records Found INFORMATION SOURCE (unrecogn ized section and content) DATE CREATED AUTHOR 02/07/2021 [facility] DATE CREATED AUTHOR AUTHOR'S ORGANIZ ATION 12/15/2024 [facility] Care Teams (unrecognized sec tion and content) Team Status: Active Member Role Status Dates Dr. Bernardino Mendieta MD Primary Care Provider Activ e Team Status: Inactive Member Role Status Dates Dr. Bernardino Mendieta MD Primary Care Provider, Attending Provider, Referring Provider Active Team Status: Active Member Role Status Dates Dr. Bakari Mendieta MD Primary Care Provider Acti ve Team Status: Inactive Member Role Status Dates Dr. Bakari Mendieta MD Primary Care Provider Acti ve Start: June 10, 2024 End: June 10, 2024 Dr. Bakari Mendieta MD Referring Provider Active Start: June 10, 2024 End: June 10, 2024 JONATHAN Jeronimo Attending Provider Active Sta rt: June 10, 2024 End: June 10, 2024 Team Status: Inactive Member Role Status Dates Dr. Bakari Mendieta MD Primary Care Provider Acti ve Start: August 08, 2024 End: August 08, 2024 Dr. Bakari Mendieta MD Referring Provider Active Start: August 08, 2024 End: August 08, 2024 JONATHAN Glynn Attending Provider Active Start: August 08, 2024 End: August 08, 2024 Team Status: Inactive Member Role Status Dates Dr. Bakari Mendieta MD Primary Care Provider Acti ve Start: August 08, 2024 End: August 08, 2024 JONATHAN Glynn Attending Provider Active Start: August 08, 2024 End: August 08, 2024 JONATHAN Glynn Referring Provider Active Start: August 08, 2024 End: August 08, 2024 Team Status: Inactive Member Role Status Dates Dr. Bakari Mendieta MD Primary Care Provider Acti ve Start: October 21, 2024 End: October 21, 2024 Dr. Bakari Mendieta MD Referring Provider Active Start: October 21, 2024 End: October 21, 2024 AGA Ruvalcaba Attending Provider Active S tart: October 21, 2024 End: October 21, 2024 Team Status: Active Member Role/Relationship Status Dates Dr. Bakari Mendieta MD Primary Care Provider Acti ve Team Status: Inactive Member Role/Relationship Status Dates Dr. Bakari Mendieta MD Primary Care Provider Acti ve Start: August 08, 2024 End: August 08, 2024 Dr. Bakari Mendieta MD Referring Provider Active Start: August 08, 2024 End: August 08, 2024 Syed CASTILLO PA Attending Provider Active Start: August 08, 2024 End: August 08, 2024 Team Status: Inactive Member Role/Relationship Status Dates Dr. Bakari Mendieta MD Primary Care Provider Acti ve Start: August 08, 2024 End: August 08, 2024 Syed CASTILLO PA Attending Provider Active Start: August 08, 2024 End: August 08, 2024 Syed CASTILLO PA Referring Provider Active Start: August 08, 2024 End: August 08, 2024 Team Status: Inactive Member Role/Relationship Status Dates Dr. Bakari Mendieta MD Primary Care Provider Acti ve Start: October 21, 2024 End: October 21, 2024 Dr. Bakari Mendieta MD Referring Provider Active Start: October 21, 2024 End: October 21, 2024 AGA Ruvalcaba Attending Provider Active S tart: October 21, 2024 End: October 21, 2024 Team Status: Inactive Member Role/Relationship Status Dates Dr. Bakari Mendieta MD Primary Care Provider Acti ve Start: November 11, 2024 End: November 11, 2024 Cathi Huynh ACCOUNTS RECEIVABLE COLLECTOR, ACCOUNTS RECEIVABLE COLLECTOR-C Attending Provider Active Start: November 11, 2024 End: November 11, 2024 Cathi Huynh ACCOUNTS RECEIVABLE COLLECTOR, ACCOUNTS RECEIVABLE COLLECTOR-C Referring Provider Active Start: November 11, 2024 End: November 11, 2024 Team Status: Inactive Member Role/Relationship Status Dates Dr. Bakari Mendieta MD Primary Care Provider Acti ve Start: November 24, 2024 End: November 24, 2024 Cathi Huynh NP, ACCOUNTS RECEIVABLE COLLECTOR-C Attending Provider Active Start: November 24, 2024 End: November 24, 2024 Goals (unrecognized section and content) Goals may be documented in a n alternate sectionGoals may be documented in an alternate sectionGoals may be documented in an alternate sectionGoals may be documented in an alternate sectionGoals may be documented in an alternate section FOR RECORDS PERTAINING TO PATIENTS WHO ARE OR HAVE BEEN ENROLLED IN A CHEMICAL DEPENDENCY/SUBSTANCEABUSE PROGRAM, SOME INFORMATION MAY BE OMITTED. This clinical summary was aggregated from multiple sources. Caution should be exercised in using it in the provision of clinical care. This summary normalizes information from multiple sources, and as a consequence, information in this document may materially change the coding, format and clinical context of patient data. In addition, data may be omitted in some cases. CLINICAL DECISIONS SHOULD BE BASED ON THE PRIMARY CLINICAL RECORDS. [facility]. provides no warranty or guarantee of the accuracy or completeness of information in this document.
[2024-12-16] MEDS: Lactated Ringers 1,000 ML 15 ML IV (05:57)
--- NOTE | 2024-12-16 06:32 | PRE.ANES_ITS ---
ASA Classification* ASA Classification ASA Classification: 1 Assessment & Plan Anesthesia* Anesthesia Assessment Anesthesia Assessment: Discussed sedation and/or anesthesia options, risks, benefits, and alternatives with patient/parents/legal guardian/POA. Questions invited. The patient/parents/legal guardian/POA seems to understand and agrees to proceed with anesthesia plan. Reviewed the physical assessment, medical history, allergy history and patient home medications list prior to surgery/procedure/anesthetic and documented any changes. Performed airway and anesthesia risk assessments. Anesthesia Type Anesthesia Type: MAC History Source History Obtained from:: Patient and Chart Anesthesia Focused Assessment* Temperature: 98.1 F Pulse Rate: 62 Blood Pressure: 147/94 Respiratory Rate: 14 Pulse Ox: 97 Airway Assessment Mouth opens: >3 cm Mallampati Score: I Teeth Condition: Intact Neck Range of motion (ROM): Full ROM Labs Anesthesia Preop lab: CBC WBC 10.0 K/mm3 (4.4-11.0) 07/24/21 05:45 07/24/21 RBC 4.52 M/mm3 (4.6-6.2) L 07/24/21 05:45 07/24/21 Hgb 14.1 g/dL (13.0-16.5) 07/24/21 05:45 07/24/21 Hct 41.2 % (40-54) 07/24/21 05:45 07/24/21 Plt Count 250 K/mm3 (150-450) 07/24/21 05:45 07/24/21 CHEMISTRY Potassium 4.5 mmol/L (3.5-5.1) 07/24/21 05:45 07/24/21 Sodium 135 mmol/L (136-145) L 07/24/21 05:45 07/24/21 Magnesium 2.1 mg/dL (1.6-2.6) 07/10/21 09:20 07/10/21 BUN 15 mg/dL (7-18) 07/24/21 05:45 07/24/21 Creatinine 0.99 mg/dL (0.70-1.30) 07/24/21 05:45 07/24/21 Glucose 135 mg/dL (74-106) H 07/24/21 05:45 07/24/21 POC Glucose 82 mg/dL (74-106) 07/23/21 11:00 07/23/21 COAG Pre-Assessment Diagnosis/Proposed Procedure Planned Operative Procedure(s): COLONOSCOPY Anesthesia History 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 When Was Last Pacemaker Check QUESTION #4 FULL TEXT: You/Your Family Experience fever (hyperthermia) with Anesthesia Last Oral Intake Last Oral intake: Last Oral Intake NPO since 02:15 12/16/24 05:48 Meds taken in AM with sips of water? 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 set up operator Female No 12/13/24 14:57 HX of Motion Sickness No 12/13/24 14:57 HX of N/V After Surgery Yes 12/13/24 14:57 Non-Smoker Yes 12/13/24 14:57 Duration of Surgery greater No 12/13/24 14:57 than 60 minutes Number of Risk Factors 2 12/13/24 14:57 PONV Score Moderate Risk 12/13/24 14:57 Any additional information?: Yes Female: No HX of Motion Sickness: Yes HX of N/V After Surgery: Yes Non-Smoker: No Duration of Surgery greater than 60 minutes: No Number of Risk Factors: 2 PONV Score: Moderate Risk Height & Weight Height & Weight: Anesthesia: Height & Weight Height 5 ft 9 in 12/16/24 05:48 Weight: 85.6 kg 12/16/24 05:48 Body Mass Index (BMI) 27.8 12/16/24 05:48 Respiratory Assessment Respiratory Assessment - bag machine set up operator: Respiratory Tract Infection Hx - bag machine set up operator Hx Respiratory Tract Infection No 12/13/24 14:57 STOP Sleep Apnea STOP Sleep Apnea - bag machine set up operator: STOP Sleep Apnea - bag machine set up operator Hx Hypertension No 12/13/24 14:57 Hx Sleep Apnea No 12/13/24 14:57 CPAP BIPAP Do you snore loudly (louder Yes 12/13/24 14:57 than talking or can be heard Do you often feel tired/ No 12/13/24 14:57 fatigued/ sleepy during daytime? Has anyone observed you stop Yes 12/13/24 14:57 breathing during sleep? STOP Results Positive 12/13/24 14:57 QUESTION #5 FULL TEXT : Do you snore loudly (louder than talking or can be heard through closed doors)? 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 Specify any problems Hx of Preganancy in last 3 N/A 12/13/24 14:57 Months Nurse Filling Out Transfusion MORA 12/13/24 14:57 & Questions: Date: 12/13/24 12/13/24 14:57 Time: 14:59 12/13/24 14:57 Patient unable to answer at this time (ie. confused, unrespo /Reproduction History /Reproductive History - bag machine set up operator: /Reproductive Hx- bag machine set up operator Hx Now No 12/13/24 14:57 Gestational Age (in weeks): EDC: Hx Hx Para Hx Section SAB No 12/13/24 14:57 Active Medications Active Medications: Current Medications Generic Name Dose Route Start Last Admin Trade Name Freq PRN Reason Stop Dose Admin Lactated Ringer's 1,000 mls @ 15 mls/hr 12/16/24 05:45 12/16/24 05:57 IV 15 mls/hr .Q48H SEBASTIAN Administration PFSH Medical History (Updated 12/13/24 @ 15:07 by Lydia Johnson) PONV (postoperative nausea and vomiting) Leg cramps Laceration of right thumb Crushing injury of right thumb Wears glasses Alcohol use Arthritis Non-smoker History of pain when walking Cardiology follow-up encounter History of irregular heartbeat Home Medications ?Medication ?Instructions ?Recorded ?Last Taken ?Type ascorbate calcium (vitamin C) 500 500 mg PO DAILY 11/2212/14/24 History mg tablet cholecalciferol (vitamin D3) 50 50 mcg PO DAILY 12/14/24 History mcg (2,000 unit) capsule ferrous sulfate 325 mg (65 mg 325 mg PO MOWEFR 2 12/14/24 History iron) tablet [id number]-mfmi-sterols 2 cap PO DAILY 12/2312/14/24 History 375 mg-100 mg-36 mg-54 mg capsule (Glucosamine Chondroitin PLUS) multivitamin 1 tab PO DAILY 07/09/2112/02 History coenzyme Q10 100 mg capsule (Co 100 mg PO DAILY 12/14/24 History Q-10) Allergy/AdvReac Type Severity Reaction Status Date / Time No Known Allergies Allergy Verified 12/16/24 05:48 Family History Father Cancer Heart disease Surgical History History of back surgery Hx of colonoscopy Social History Smoking Status: Never smoker alcohol intake: current details: 2-3 drinks per week Review of Systems (Anesthesia) ROS Narrative System reviewed and no additional complaints, except as documented.
--- NOTE | 2024-12-16 06:33 | PCM.HP.STD ---
HPI - General General Date of Admission: 12/16/24 Date of Service: 12/16/24 Chief Complaint: Screening colonoscopy HPI Narrative LESLEY MCCLOUD, is a 64 M who presentsfor screening colonoscopy. He states that his is a patient of our group and is happy with her care. He states that his last colonoscopy was done at age 49 and that he promised his to get a repeat colonoscopy following her incidence of GI bleeding requiring a hospital admission. His last colonoscopy was unremarkable. He denies having any GI concerns. Reports daily BMs, if not twice, and complete without straining. He denies hematochezia and melena. Takes oral iron supplement because he donates blood frequently because he's O negative blood type. He denies food allergies and sensitivities. [facility] Medical History PONV (postoperative nausea and vomiting) Leg cramps Laceration of right thumb Crushing injury of right thumb Wears glasses Alcohol use Arthritis Non-smoker History of pain when walking Cardiology follow-up encounter History of irregular heartbeat Home Medications ?Medication ?Instructions ?Recorded ?Last Taken ?Type ascorbate calcium (vitamin C) 500 500 mg PO DAILY 06/10/21 12/14/24 History mg tablet cholecalciferol (vitamin D3) 50 50 mcg PO DAILY 06/10/21 12/14/24 History mcg (2,000 unit) capsule ferrous sulfate 325 mg (65 mg 325 mg PO MOWEFR 06/10/21 12/14/24 History iron) tablet espf-maweu-fe0-fup-vdr-pkad-sterols 2 cap PO DAILY 07/09/21 12/14/24 History 375 mg-100 mg-36 mg-54 mg capsule (Glucosamine Chondroitin PLUS) multivitamin 1 tab PO DAILY 07/09/21 12/14/24 History coenzyme Q10 100 mg capsule (Co 100 mg PO DAILY 12/13/24 12/14/24 History Q-10) Allergy/AdvReac Type Severity Reaction Status Date / Time No Known Allergies Allergy Verified 12/16/24 05:48 Family History Father Cancer Heart disease Surgical History History of back surgery Hx of colonoscopy Social History Smoking Status: Never smoker alcohol intake: current details: 2-3 drinks per week ROS Constitutional Constitutional: Denies fatigue, fever(s), poor appetite, weight gain or weight loss Gastrointestinal Gastrointestinal: Denies belching, bloating, change in bowel habits, change in stool character, chewing difficulty, coffee ground emesis, constipation, cramping, diarrhea, dyspepsia, dysphagia, early satiety, excessive flatus, fecal incontinence, heartburn, hematemesis, hematochezia, hemorrhoids, loose stools, melena, nausea, odynophagia, rectal bleeding, tenesmus, vomiting or weight changes Vital Signs Vital Signs Vital Signs: 12/16/24 05:48 12/16/24 05:48 Temperature 98.1 F Temperature Source Temporal Pulse Rate 62 Respiratory Rate 14 Respiratory Pattern Normal Blood Pressure 147/94 H Blood Pressure Mean 111 Blood Pressure Source Monitor Blood Pressure Position Semi-Fowlers Blood Pressure Location Left Arm Pulse Ox 97 Oxygen Delivery Method Room Air Weight Weight: 188 lb 11.451 oz Body Mass Index (BMI) 27.8 Physical Exam Const alert, oriented x3, no apparent distress and healthy appearing General Appearance: cooperative GI normal to inspection, nondistended, normoactive bowel sounds, soft to palpation, non-tender and non-distended Percussion: normal to percussion Rectal Exam: deferred Assessment & Plan Assessment/Plan (1) Encounter for screening colonoscopy: PLAN: Assessment and Plan Assessment and Plan (1) Encounter for screening colonoscopy: Status: Acute Plan LESLEY MCCLOUD, is a 64 M who presents to the office today for establishment with [facility] for screening colonoscopy. He states that his is a patient of our group and is happy with her care. He states that his last colonoscopy was done at age 49 and that he promised his to get a repeat colonoscopy following her incidence of GI bleeding requiring a hospital admission. His last colonoscopy was unremarkable. He denies having any GI concerns. schedule screening colonoscopy office FU
--- NOTE | 2024-12-16 07:01 | PCM.POST.ANE ---
Anesthesia: Postop Eval I Current Vital Signs Temperature: 98 F Pulse Rate: 88 Blood Pressure: 103/72 Respiratory Rate: 16 Pulse Ox: 100 Oxygen Delivery Method: Room Air Assessment Airway patent: Yes Spontaneous unlabored respirations: Yes Mental status: Awake and Calm nausea: No Vomiting: No Anesthesia Complication: No Fluid Hydration Crystalloid volume administer (ml): 300 Total IV fluid infused: 300 Progress Note Anesthesia document: Postop Eval 1 completed: Yes
--- NOTE | 2024-12-16 07:03 | OP.COLON_ITS ---
Patient Name: Colin Hansen Procedure Date: 12/16/2024 6:31 AM Date of : 1960 Age: 64 Procedure: Colonoscopy Indications: Screening for colorectal malignant neoplasm Providers: Johnson Cooper DO Referring MD: Bernardino Mendieta Medicines: Monitored Anesthesia Care Patient Profile: This is a 64 year old male. Refer to note in patient chart for documentation of history and physical. Last Colonoscopy: more than 10 years ago. Complications: No immediate complications. Procedure: Pre-Anesthesia Assessment: - Prior to the procedure, a History and Physical was performed, and patient medications and allergies were reviewed. The patient is competent. The risks and benefits of the procedure and the sedation options and risks were discussed with the patient. All questions were answered and informed consent was obtained. Patient identification and proposed procedure were verified by the physician. Mental Status Examination: alert and oriented. Airway Examination: normal oropharyngeal airway and neck mobility. Respiratory Examination: clear to auscultation. CV Examination: normal. Prophylactic Antibiotics: The patient does not require prophylactic antibiotics. Prior Anticoagulants: The patient has taken no anticoagulant or antiplatelet agents except for NSAID medication. ASA Grade Assessment: II - A patient with mild systemic disease. After reviewing the risks and benefits, the patient was deemed in satisfactory condition to undergo the procedure. The anesthesia plan was to use monitored anesthesia care (MAC). Immediately prior to administration of medications, the patient was re-assessed for adequacy to receive sedatives. The heart rate, respiratory rate, oxygen saturations, blood pressure, adequacy of pulmonary ventilation, and response to care were monitored throughout the procedure. The physical status of the patient was re-assessed after the procedure. After I obtained informed consent, the scope was passed under direct vision. Throughout the procedure, the patient's blood pressure, pulse, and oxygen saturations were monitored continuously. The Colonoscope was introduced through the anus and advanced to the cecum, identified by appendiceal orifice and ileocecal valve. The colonoscopy was performed without difficulty. The patient tolerated the procedure well. The quality of the bowel preparation was adequate. The ileocecal valve, appendiceal orifice, and rectum were photographed. Scope In: 6:46:43 AM Scope Withdrawal Time 0 hours 9 minutes 9 seconds Scope Out: 6:58:36 AM Total Procedure Duration Time 0 hours 11 minutes 53 seconds Findings: The perianal and digital rectal examinations were normal. A few small-mouthed diverticula were found in the recto-sigmoid colon, sigmoid colon, descending colon and ascending colon. The exam was otherwise without abnormality on direct and retroflexion views. Impression: - Diverticulosis in the recto-sigmoid colon, in the sigmoid colon, in the descending colon and in the ascending colon. - The examination was otherwise normal on direct and retroflexion views. - No specimens collected. Recommendation: - Discharge patient to home. - Resume previous diet. - Continue present medications. - Repeat colonoscopy in 10 years for screening purposes. Procedure Code(s): --- Professional --- G0121, Colorectal cancer screening; colonoscopy on individual not meeting criteria for high risk CPT copyright 2021 [employer]. All rights reserved. The codes documented in this report are preliminary and upon cashier parking lot review may be revised to meet current compliance requirements. Johnson Cooper DO 12/16/2024 7:02:22 AM This report has been signed electronically. Number of Addenda: 0 Note Initiated On: 12/16/2024 6:31 AM
--- NOTE | 2024-12-16 07:03 | OP.PROVAT_ITS ---
12/16/2024 Bernardino Mendieta [address] [place] [address] Re : Colonoscopy procedure for Colin Seojulianna Dear Dr. Mendieta This procedure was performed on Monday, December 16, 2024. My impressions and recommendations are as follows: Impressions : - Diverticulosis in the recto-sigmoid colon, in the sigmoid colon, in the descending colon and in the ascending colon. - The examination was otherwise normal on direct and retroflexion views. - No specimens collected. Recommendations : - Discharge patient to home. - Resume previous diet. - Continue present medications. - Repeat colonoscopy in 10 years for screening purposes. My findings are described in the full procedure note, which is enclosed. If I can be of further assistance, please feel free to contact me at . Sincerely, Johnson Cooper, 12/16/2024 7:02:22 AM This report has been signed electronically.
--- NOTE | 2024-12-16 07:09 | POSTOPAN2_ITS ---
Anesthesia Postop Eval I Sum Postop Eval Completion status Anesthesia document: Postop Eval 1 completed: Yes Anesthesia Postop Eval I Summary Anesthesia Postop Eval I Summary: Anesthesia Postop Eval I: Assessment Summary Airway patent Yes 12/16/24 07:01 [email or web address] Spontaneous unlabored Yes 12/16/24 07:01 [email or web address] [email or web address] respirations Mental status Awake,Calm 12/16/24 07:01 [email or web address] [email or web address] nausea No 12/16/24 07:01 MYSQL [email or web address] Vomiting No 12/16/24 07:01 MYSQL [email or web address] Anesthesia Postop Eval I: Fluid Summary Crystalloid volume administer 300 12/16/24 07:01 MYSQL [email or web address] (ml) Colloids volume administered ( ml) Blood Product volume administered (ml) Total IV fluid infused 300 12/16/24 07:01 [email or web address] [email or web address] Anesthesia Postop Eval I: Summary Notes Anesthesia Complication No 12/16/24 07:01 MYSQL [email or web address] Anesthesia Complication Comment: Post-operative progress note Anesthesia: Postop Eval II Evaluation Mental status: Awake and Calm Pain Level: 0 nausea: No Vomiting: No Complications Anesthesia Complication: No
--- NOTE | 2024-12-16 07:09 | PCM.POSTANE2 ---
Anesthesia Postop Eval I Sum Postop Eval Completion status Anesthesia document: Postop Eval 1 completed: Yes Anesthesia Postop Eval I Summary Anesthesia Postop Eval I Summary: Anesthesia Postop Eval I: Assessment Summary Airway patent Yes 12/16/24 07:01 REVIEW [email or web address] Spontaneous unlabored Yes 12/16/24 07:01 REVIEW [email or web address].[email or web address] respirations Mental status Awake,Calm 12/16/24 07:01 REVIEW [email or web address].[email or web address] nausea No 12/16/24 07:01 REVIEW [email or web address].[email or web address] Vomiting No 12/16/24 07:01 REVIEW [email or web address].[email or web address] Anesthesia Postop Eval I: Fluid Summary Crystalloid volume administer 300 12/16/24 07:01 REVIEW ENGINEER.MDOT (ml) Colloids volume administered ( ml) Blood Product volume administered (ml) Total IV fluid infused 300 12/16/24 07:01 REVIEW [email or web address].[email or web address] Anesthesia Postop Eval I: Summary Notes Anesthesia Complication No 12/16/24 07:01 REVIEW [email or web address].[email or web address] Anesthesia Complication Comment: Post-operative progress note Anesthesia: Postop Eval II Evaluation Mental status: Awake and Calm Pain Level: 0 nausea: No Vomiting: No Complications Anesthesia Complication: No
--- NOTE | 2024-12-16 08:10 | POSTOPAN2_ITS ---
Anesthesia Postop Eval I Sum Postop Eval Completion status Anesthesia document: Postop Eval 1 completed: Yes Anesthesia Postop Eval I Summary Anesthesia Postop Eval I Summary: Anesthesia Postop Eval I: Assessment Summary Airway patent Yes 12/16/24 07:01 INSTRUCTOR DRAMATIC [email or web address].[email or web address] Spontaneous unlabored Yes 12/16/24 07:01 INSTRUCTOR DRAMATIC ARTS.[email or web address] respirations Mental status Awake,Calm 12/16/24 07:09 INSTRUCTOR DRAMATIC ARTS.OT nausea No 12/16/24 07:09 INSTRUCTOR DRAMATIC ARTS.PARKER Vomiting No 12/16/24 07:09 INSTRUCTOR DRAMATIC ARTS.PARKER Anesthesia Postop Eval I: Fluid Summary Crystalloid volume administer 300 12/16/24 07:01 INSTRUCTOR DRAMATIC ARTS.OT (ml) Colloids volume administered ( ml) Blood Product volume administered (ml) Total IV fluid infused 300 12/16/24 07:01 INSTRUCTOR DRAMATIC ARTS.PARKER Anesthesia Postop Eval I: Summary Notes Anesthesia Complication No 12/16/24 07:09 INSTRUCTOR DRAMATIC ARTS.PARKER Anesthesia Complication Comment: Post-operative progress note Anesthesia: Postop Eval II Evaluation Mental status: Awake and Calm Pain Level: 0 nausea: No Vomiting: No Progress Note Post-operative progress note: meets discharge criteria Complications Anesthesia Complication: No
--- NOTE | 2024-12-16 08:10 | PCM.POSTANE2 ---
Anesthesia Postop Eval I Sum Postop Eval Completion status Anesthesia document: Postop Eval 1 completed: Yes Anesthesia Postop Eval I Summary Anesthesia Postop Eval I Summary: Anesthesia Postop Eval I: Assessment Summary Airway patent Yes 12/16/24 07:01 PAIL [email or web address] Spontaneous unlabored Yes 12/16/24 07:01 PAIL [email or web address] respirations Mental status Awake,Calm 12/16/24 07:09 PAIL [email or web address].OT nausea No 12/16/24 07:09 PAIL [email or web address].[email or web address] Vomiting No 12/16/24 07:09 PAIL [email or web address] Anesthesia Postop Eval I: Fluid Summary Crystalloid volume administer 300 12/16/24 07:01 PAIL BAILER.OT (ml) Colloids volume administered ( ml) Blood Product volume administered (ml) Total IV fluid infused 300 12/16/24 07:01 PAIL [email or web address] Anesthesia Postop Eval I: Summary Notes Anesthesia Complication No 12/16/24 07:09 PAIL [email or web address].[email or web address] Anesthesia Complication Comment: Post-operative progress note Anesthesia: Postop Eval II Evaluation Mental status: Awake and Calm Pain Level: 0 nausea: No Vomiting: No Progress Note Post-operative progress note: meets discharge criteria Complications Anesthesia Complication: No
== END 2024-12-16 07:40 | disposition home or self-care (01) ==
LOC: EN 05:26 → AC 05:27
PROVIDERS: PCP Family Medicine; Referring Provider Family Medicine; Visit Provider Internal Medicine Gastroenterology
PROC: 0DJD8ZZ Inspection of Lower Intestinal Tract, Via Natural or Artificial Opening Endoscopic (ICD-10-PCS; CPT 45378; principal; 2024-12-16 06:25)
DX: Z12.11 Encounter for screening for malignant neoplasm of colon (principal); K57.30 Diverticulosis of large intestine without perforation or abscess without bleeding; M19.90 Unspecified osteoarthritis, unspecified site; Z79.899 Other long term (current) drug therapy
CPT/HCPCS: G0121